=== PATIENT | female | born 1965 | race Caucasian/White ===

== ENCOUNTER 2021-07-09 00:11 | Day surgery (SDC) | payer OTHER, SELFPAY ==
[2021-05-22 09:43] VITALS: BMI 27.3
--- NOTE | 2021-05-22 10:01 | PC.NURSE ---
Addendum entered by Cate Barrera RN 07/07/21 10:57: PT TO ARRIVE AT 0700 ON 07/09/21 FOR SURGERY AT 0900. Original Note: Report to the Outpatient Waiting Room, entrance under the green pavilion located off [facility], at time 0600 on date 05/28/21. OR Time: 0730. - You and your visitor will be asked a series of questions to screen for COVID 19 for your protection. - A mask is required within the hospital. One visitor will be allowed to accompany the patient into the hospital. Patients visitor will be instructed to remain with patient at all times or leave the building. We will allow the visitor to come back to the postoperative area when patient is ready. Preoperative COVID Testing Requirements: No COVID Test needed if: (proof is required; if not received patient will have Rapid Test prior to entry) - Patient has received COVID Vaccine at least 14 days prior to procedure date or - Patient has positive COVID test result within last 90 days of surgery date. COVID Test needed if above criteria is not met Patients may have clear liquids (water, carbonated beverages, clear teas, apple juice) until 3 hours prior to surgery with a maximum of 20 ounces. - No food from midnight until time of surgery Take the following medications with a SIP of water the morning of surgery: LEVOTHYROXINE, INHALERS Medications to discontinue per physician: VITAMINS/SUPPLEMENTS Date to take last dose: 05/24/21 Please no make-up, nail bengali, hairspray, perfume, deodorant, or body powder the day of surgery. No jewelry (including any body piercings) or valuables the day of surgery, leave them at home. Please take a shower or bath the night before, or the morning of, surgery with an antibacterial soap. Wear comfortable, loose fitting clothing. - Jewelry must be removed prior to entering the operating room. Rings and piercings that are not removed may be cut off. - The hospital will not accept responsibility for valuables. - Please leave all valuables, including medications, at home the day of surgery. If you are going home after surgery, a licensed reefer truck driver must drive you home. - NO public transportation without another adult. - We recommend that an adult stay with you for 24 hours following discharge. - We also recommend that you do not drive, make important decision, drink alcoholic beverages, or take any drugs that were not prescribed by your health care provider for at least 24 hours after your discharge time. Follow any additional instructions given to you from your surgeon. Telephone instructions given to RADHA WHITMAN and asked if any additional questions and then verbalized understanding. Patient advised to call surgeon office or pre surgery nurse liaison [phone] if any additional questions.
[2021-07-07 10:53] VITALS: BMI 27.3
--- NOTE | 2021-07-08 11:04 | WPDANESEPPF ---
Anes - Initial Pre Proc Eval Procedure: Operation Date: 07/09/21 09:00 Proposed Procedures p Right Open Carpal Tunnel Release, Release Right Guyon's Canal - Bravo Dee MD Date/Time: 07/08/21 11:04 Surgeon: Bravo Dee MD Pre Op Diagnosis: Rt Carpal Tunnel Syn, Ulnar Neuropathy Rt Wrist Patient Data Age: 56 Gender: F Height: 1.65 m Weight: 74.39 kg Allergies Allergy/AdvReac Type Severity Reaction Status Date / Time No Known Allergies Allergy Unverified 07/09/21 07:03 Home Medications Medication Instructions Recorded Confirmed Type albuterol sulfate 1 inh INHALATION Q6H PRN 05/22/21 07/09/21 History folic acid 1 mg PO DAILY 05/22/21 07/09/21 History levothyroxine 50 mcg PO DAILY 05/22/21 07/09/21 History ropinirole 4 mg PO HS 05/22/21 07/09/21 History sennosides [senna] 8.6 mg PO HS 05/22/21 07/09/21 History tiotropium bromide [Spiriva with 1 cap INHALATION DAILY 05/22/21 07/09/21 History HandiHaler] trazodone 150 mg PO HS 05/22/21 07/09/21 History amitriptyline 25 mg PO DAILY 07/09/21 07/09/21 History gabapentin 100 mg PO DAILY 07/09/21 07/09/21 History Patient hx anesthesia problems: none Family hx anesthesia problems: none Results Review: All pre-operative results and documents have been reviewed as part of the pre-operative evaluation. [facility] Past Medical History Medical History (Updated 07/08/21 @ 11:05 by Castro Hector DO) Anxiety COPD (chronic obstructive pulmonary disease) Depression Hypothyroidism DRU (obstructive sleep apnea) Seizure Surgical History Surgical History (Updated 07/08/21 @ 11:05 by Castro Hector DO) History of Social History Social History Smoking packs per day: 1 Smoking cigarettes per day: 20.0 Years smoked: 48 Smoking pack-years: 48.00 Smoking status: Current every day smoker Tobacco type: cigarettes Alcohol intake: current Drinks per week: 30 Alcohol use details: FIREBALL SHOTS Substance use: never Substance use type: does not use Living arrangements: other Additional living arrangements comments: WITH VARIOUS FAMILY MEMBERS Spiritual care concerns: No Anes - Eval Final PreProcedure Day of Procedure 07/08/21 11:04 Patient weight: overweight Heart: regular rate and rhythm Lungs: clear to auscultation and normal air movement Airway: Mallampati scale class II Neurological: alert and oriented Last oral intake: >/= 8 hours ASA classification: III Emergent: no Anesthetic plan: proceed Anesthesia type and monitoring: general GIVS and standard monitoring Results Review: All pre-operative results and documents have been reviewed as part of the pre-operative evaluation. Informed Consent: The patient's anesthetic plan and its attendant risks and benefits were discussed with the patient/family/POA. Questions were solicited and answers provided to the satisfaction of the patient/family/POA.
--- NOTE | 2021-07-09 07:12 | WPDHPUPDATE1 ---
History and Physical Update Update Date/Time: 07/09/21 07:12 History and Physical has been reviewed, including an updated exam of the patient. There are NO changes in the patient's condition. Risks, benefits, and alternatives have been discussed and questions answered. Patient agrees to proceed with procedure.
[2021-07-09] MEDS: LACTATED RINGERS 1,000 ML 30 ML IV CONT (07:30)
[2021-07-09 07:37] VITALS: BP 114/87; PULSE 93; RESP 16; TEMP 36.1; O2SAT 98
[2021-07-09] MEDS: BACITRACIN OINTMENT 15 GM TUBE 1 APPLIC TOPICAL (08:54)
[2021-07-09] MEDS: LIDO 1%/EPINEPHRINE 1:100,000 50 ML VIAL 10 ML INFILTRATE (08:54)
[2021-07-09 09:36] VITALS: BP 128/77; PULSE 80; RESP 16; O2SAT 100
[2021-07-09 10:00] VITALS: BP 130/71; PULSE 86; RESP 16; O2SAT 98
[2021-07-09 10:20] VITALS: BP 113/70; PULSE 85; RESP 16
--- NOTE | 2021-07-09 18:14 | W.PM.PROC2 ---
Procedure Note - Detailed Date of Procedure 07/09/21 Pre-op Diagnosis Rt Carpal Tunnel Syn, Ulnar Neuropathy Rt Wrist Post-op Diagnosis Same Procedure Performed Right open carpal tunnel release and right ulnar neuroplasty at [facility]'s canal Surgeon Bravo Dee MD Anesthesia MAC Indications History, physical exam and nerve conduction study, failing conservative treatment Findings Normal anatomy Description of Procedure The carpal canal and Guyon's canal were marked on the patient in holding area she was and consented. He was then taken to the operating placed supine on operating table. He was given IV sedation the extremity was prepped and draped in usual fashion. Time-out was held and confirmed. The site was marked for the actual incision which was a slightly curved ulnar paramedian incision that crossed the distal wrist crease slightly. The extremity was exsanguinated the tourniquet inflated to 250 mmHg. This area was locally infiltrated as well with 1% lidocaine with epinephrine the incision was made as marked and dissection was carried through the subcutaneous tissue to the palmar carpal ligament this was incised near the pisiform and the ulnar neurovascular bundle was identified. The ulnar artery was not dissected the ulnar nerve was visible at the trunk and at the bifurcation. No constricting soft tissue mass was identified. Attention was directed radially and the carpal retinaculum which was incised for a complete release no unusual anatomy was noted in that compartment either. The skin was closed with interrupted 5 0 nylon the usual bandage was applied the tourniquet was released she is discharged from the operating room stable condition. Drains No Packing No Pathology None sent Complications No immediate complications Condition Stable Disposition Same day
== END 2021-07-09 10:42 | disposition home or self-care (01) ==
PROVIDERS: PCP Internal Medicine; Visit Provider Plastic Surgery
PROC: (CPT 64721; principal; 2021-07-09 09:00)
DX: G56.01 Carpal tunnel syndrome, right upper limb (principal); G56.21 Lesion of ulnar nerve, right upper limb; J44.9 Chronic obstructive pulmonary disease, unspecified; G47.33 Obstructive sleep apnea (adult) (pediatric); E03.9 Hypothyroidism, unspecified; F41.8 Other specified anxiety disorders; Z79.51 Long term (current) use of inhaled steroids; F17.210 Nicotine dependence, cigarettes, uncomplicated
CPT/HCPCS: 64721; A9270; J2250; J2704; J3010; J7120

== ENCOUNTER 2021-09-11 00:57 | Day surgery (SDC) | payer OTHER, SELFPAY ==
[2021-08-19 08:54] VITALS: BMI 28.3
--- NOTE | 2021-08-19 09:03 | PC.NURSE ---
Addendum entered by Cate Barrera RN 09/04/21 10:04: PT TO ARRIVE AT 1200 ON 09/11/21 FOR SURGERY AT 1400. TO STOP VITAMINS/SUPPLEMENTS 3 DAYS PRIOR TO PROCEDURE. Original Note: Report to the Outpatient Waiting Room, entrance under the green pavilion located off [facility], at time ___0600____ on date 08/21/21___. OR Time: _0730 . - You and your visitor will be asked a series of questions to screen for COVID 19 for your protection. - Only one visitor is allowed at this time. - The patient visitor is requested to leave or wait in car when not with patient. - A mask is required within the hospital. Patients may have clear liquids (water, carbonated beverages, clear teas, apple juice) until 3 hours prior to surgery with a maximum of 20 ounces. - No food from midnight until time of surgery - Infants may have breast milk until 4 hours before surgery, infant formula 6 hours prior to surgery. - Children will be allowed to drink immediately following surgery. If applicable, please bring a bottle or sippy cup to assist with drinking. Juice, water, soda, and popsicles are readily available. For infants on formula, please bring formula the day of surgery. Pacifiers are allowed. Take the following medications with a SIP of water the morning of surgery: AMITRIPTYLINE, GABAPENTIN, LEVOTHYROXINE Medications to discontinue per physician FOLIC ACID Date to take last dose_08/19/21 Please no make-up, nail mexican, hairspray, perfume, deodorant, or body powder the day of surgery. No jewelry (including any body piercings) or valuables the day of surgery, leave them at home. Please take a shower or bath the night before, or the morning of, surgery with an antibacterial soap. Wear comfortable, loose fitting clothing. Children are encouraged to wear pajamas. - Jewelry must be removed prior to entering the operating room. Rings and piercings that are not removed may be cut off. - The hospital will not accept responsibility for valuables. - Please leave all valuables, including medications, at home the day of surgery. If you are going home after surgery, a licensed driver recruiter must drive you home. - NO public transportation without another adult. - We recommend that an adult stay with you for 24 hours following discharge. - We also recommend that you do not drive, make important decision, drink alcoholic beverages, or take any drugs that were not prescribed by your health care provider for at least 24 hours after your discharge time. For Pediatric surgeries, we recommend two adults accompany the child home (only one inside the building at this time). Follow any additional instructions given to you from your surgeon. If you or anyone in your household have experienced Covid symptoms in the past week, please notify your surgeon or the nurse liaison at the phone number below for possible testing. Telephone instructions given to ____PATIENT and asked if any additional questions and then verbalized understanding. Patient advised to call surgeon office or pre surgery nurse liaison [phone] if any additional questions.
--- NOTE | 2021-08-20 12:45 | P.PNAN_ITS ---
Anes - Initial Pre Proc Eval Procedure: Operation Date: 08/21/21 07:30 Proposed Procedures p Release Left Carpal Tunnel and Left Guyons Canal - Bravo Dee MD Date/Time: 08/20/21 12:45 Surgeon: Bravo Dee MD Pre Op Diagnosis: Lt Carpal Tunnel Syndrome,ulnar nerve compression Patient Data Age: 56 Gender: F Height: 1.63 m Weight: 75 kg Allergies Allergy/AdvReac Type Severity Reaction Status Date / Time No Known Allergies Allergy Unverified 08/19/21 08:51 Home Medications Medication Instructions Recorded Confirmed Type albuterol sulfate 90 mcg/actuation 1 inh inhalation Q6H PRN 05/22/21 08/19/21 History aerosol inhaler Bronchospasm folic acid 1 mg tablet 1 mg PO DAILY 05/22/21 08/19/21 History levothyroxine 50 mcg tablet 50 mcg PO DAILY 05/22/21 08/19/21 History ropinirole 4 mg tablet 4 mg PO HS 05/22/21 08/19/21 History sennosides 8.6 mg tablet (senna) 8.6 mg PO HS 05/22/21 08/19/21 History tiotropium bromide 18 mcg capsule 1 cap inhalation DAILY 05/22/21 08/19/21 History with inhalation device (Spiriva with HandiHaler) amitriptyline 25 mg tablet 25 mg PO DAILY 07/09/21 08/19/21 History gabapentin 300 mg capsule 300 mg PO DAILY 07/09/21 08/19/21 History hydrocodone 5 mg-acetaminophen 325 1 tablet PO Q6H PRN pain #7 tabs 07/09/21 08/19/21 Rx mg tablet Results Review: All pre-operative results and documents have been reviewed as part of the pre- operative evaluation. [facility] Past Medical History Medical History (Updated 07/08/21 @ 11:05 by Castro Hector DO) Anxiety COPD (chronic obstructive pulmonary disease) Depression Hypothyroidism DRU (obstructive sleep apnea) Seizure Surgical History Surgical History (Updated 07/08/21 @ 11:05 by Castro Hector DO) History of Social History Social History Smoking packs per day: 0.5 Smoking cigarettes per day: 10.0 Years smoked: 40 Smoking pack-years: 20.00 Smoking status: Current every day smoker Tobacco type: cigarettes Alcohol intake: current Drinks per week: 3 Alcohol use details: FIREBALL SHOTS Substance use: never Substance use type: does not use Living arrangements: alone Additional living arrangements comments: WITH VARIOUS FAMILY MEMBERS Spiritual care concerns: No Anes - Eval Final PreProcedure Day of Procedure 08/20/21 12:45 Results Review: All pre-operative results and documents have been reviewed as part of the pre- operative evaluation. Informed Consent: The patient's anesthetic plan and its attendant risks and benefits were discussed with the patient/family/POA. Questions were solicited and answers provided to the satisfaction of the patient/family/POA.
--- NOTE | 2021-09-04 10:03 | PC.NURSE ---
Pt states no changes in health history or medications since initial interview. New pre-op instructions reviewed with pt. Pt denies further questions at this time.
--- NOTE | 2021-09-11 07:20 | WPDHPUPDATE1 ---
History and Physical Update Update Date/Time: 09/11/21 07:20 History and Physical has been reviewed, including an updated exam of the patient. There are NO changes in the patient's condition. Risks, benefits, and alternatives have been discussed and questions answered. Patient agrees to proceed with procedure.
[2021-09-11 12:02] VITALS: BP 121/64; PULSE 91; RESP 16; TEMP 36.6; O2SAT 97
[2021-09-11] MEDS: LACTATED RINGERS 1,000 ML 30 ML IV CONT (12:28)
--- NOTE | 2021-09-11 12:47 | WPDANESEPPF ---
Anes - Initial Pre Proc Eval Procedure: Operation Date: 09/11/21 14:00 Proposed Procedures p Release Left Carpal Tunnel and Left Guyons Canal - Bravo Dee MD Date/Time: 09/11/21 12:47 Surgeon: Bravo Dee MD Pre Op Diagnosis: Lt Carpal Tunnel Syndrome,ulnar nerve compression Patient Data Age: 56 Gender: F Height: 1.63 m Weight: 73.8 kg Last Vital Signs Temp 36.6 C 09/11/21 12:02 Pulse 91 09/11/21 12:02 Resp 16 09/11/21 12:02 BP 121/64 09/11/21 12:02 Pulse Ox 97 09/11/21 12:02 O2 Del Method Room Air 09/11/21 12:02 Allergies Allergy/AdvReac Type Severity Reaction Status Date / Time No Known Allergies Allergy Unverified 09/11/21 12:10 Home Medications Medication Instructions Recorded Confirmed Type albuterol sulfate 90 mcg/actuation 1 inh inhalation Q6H PRN 05/22/21 09/11/21 History aerosol inhaler Bronchospasm folic acid 1 mg tablet 1 mg PO DAILY 05/22/21 09/11/21 History levothyroxine 50 mcg tablet 50 mcg PO DAILY 05/22/21 09/11/21 History ropinirole 4 mg tablet 4 mg PO HS 05/22/21 09/11/21 History sennosides 8.6 mg tablet (senna) 8.6 mg PO HS 05/22/21 09/11/21 History tiotropium bromide 18 mcg capsule 1 cap inhalation DAILY 05/22/21 09/11/21 History with inhalation device (Spiriva with HandiHaler) amitriptyline 25 mg tablet 25 mg PO DAILY 07/09/21 09/11/21 History gabapentin 300 mg capsule 300 mg PO DAILY 07/09/21 09/11/21 History Patient hx anesthesia problems: none Family hx anesthesia problems: none Results Review: All pre-operative results and documents have been reviewed as part of the pre-operative evaluation. [facility] Past Medical History Medical History (Updated 07/08/21 @ 11:05 by Castro Hector DO) Anxiety COPD (chronic obstructive pulmonary disease) Depression Hypothyroidism DRU (obstructive sleep apnea) Seizure Surgical History Surgical History (Updated 07/08/21 @ 11:05 by Castro Hector DO) History of Social History Social History Smoking packs per day: 0.5 Smoking cigarettes per day: 10.0 Years smoked: 40 Smoking pack-years: 20.00 Smoking status: Current every day smoker Tobacco type: cigarettes Alcohol intake: current Drinks per week: 3 Alcohol use details: FIREBALL SHOTS Substance use: never Substance use type: does not use Living arrangements: alone Additional living arrangements comments: WITH VARIOUS FAMILY MEMBERS Spiritual care concerns: No Anes - Eval Final PreProcedure Day of Procedure 09/11/21 12:47 Patient weight: overweight Heart: regular rate and rhythm Lungs: clear to auscultation Airway: Mallampati scale class II Neurological: alert and oriented Last oral intake: >/= 8 hours ASA classification: III Emergent: no Anesthetic plan: proceed Anesthesia type and monitoring: general GIVS and standard monitoring Results Review: All pre-operative results and documents have been reviewed as part of the pre-operative evaluation. Informed Consent: The patient's anesthetic plan and its attendant risks and benefits were discussed with the patient/family/POA. Questions were solicited and answers provided to the satisfaction of the patient/family/POA.
[2021-09-11] MEDS: LIDO 1%/EPINEPHRINE/PF 1:200,000 30 ML VIAL 10 ML XX (14:34)
[2021-09-11 15:04] VITALS: BP 90/44; PULSE 82; RESP 12; O2SAT 98
--- NOTE | 2021-09-11 15:06 | W.PM.PROC2 ---
Procedure Note - Detailed Date of Procedure 09/11/21 Pre-op Diagnosis Lt Carpal Tunnel Syndrome,ulnar nerve compression at Guyon's canal Post-op Diagnosis Same Procedure Performed Left open carpal tunnel release release of left ulnar nerve at [facility] skin. Surgeon Bravo Dee MD Anesthesia MAC Description of Procedure The left palm was marked for access to the carpal tunnel and Guyon's canal. Patient taken to the operating room placed supine on the operating table. She was given IV sedation and the extremity was prepped and draped in usual fashion. The site was marked for the incision. It was locally infiltrated with 1% lidocaine with epinephrine. The tourniquet was inflated to 250 mmHg. The incision was made as marked and carried bluntly through the subcutaneous tissue down to the ulnar side of the carpal ligament. This was incised opening the canal under 3 point retraction. The complete release was completed. Attention was directed more ulnarly beneath the same skin incision. The palmar aponeurosis was incised and the ulnar neurovascular bundle identified. It was followed from the area of the pisiform distally to hook of the hamate. During this dissection it was noted the 1 mm artery was transected. This was associated with vena comitantes and the nerve. This transection was carefully exposed over 3 mm. At that point small vascular clips were applied to each end of this artery very near the end. The tourniquet was released and the hand completely pinked within 2 seconds including all 5 digits. Based on that finding we elected not to try to repair this but left the clips. The nerve was noted to be intact. The skin was then closed with interrupted 5 0 nylon sutures and the usual bandage applied with an Sina wrap. Patient is discharged from the operating room stable condition she has a prescription for hydrocodone number 7 Estimated Blood Loss 1 Tourniquet Time 18 Condition Stable Disposition Same day
[2021-09-11 15:35] VITALS: BP 89/58; PULSE 78; RESP 16
== END 2021-09-11 16:17 | disposition home or self-care (01) ==
PROVIDERS: PCP Internal Medicine; Visit Provider Plastic Surgery
PROC: (CPT 64721; principal; 2021-09-11 14:00)
DX: G56.22 Lesion of ulnar nerve, left upper limb (principal); G56.02 Carpal tunnel syndrome, left upper limb; I97.52 Accidental puncture and laceration of a circulatory system organ or structure during other procedure; Z79.82 Long term (current) use of aspirin; Z79.51 Long term (current) use of inhaled steroids; E03.9 Hypothyroidism, unspecified; F41.9 Anxiety disorder, unspecified; F32.A Depression, unspecified; J44.9 Chronic obstructive pulmonary disease, unspecified; R56.9 Unspecified convulsions; F17.210 Nicotine dependence, cigarettes, uncomplicated
CPT/HCPCS: 64721; A9270; J2250; J2270; J2704; J7120

== ENCOUNTER 2022-04-21 08:09 | Outpatient (CLI) | payer OTHER, SELFPAY ==
--- NOTE | ~2022-04-21 | CT_ITS ---
CT Scan of the Chest without Contrast: Clinical Indication: Pulmonary nodules Technique: Contiguous sections were acquired throughout the chest without intravenous contrast. Dose reduction technique was used on this scan by utilizing automated exposure control and iterative recon struction technique. The dose-length product (DLP) was 140.72 mGy-cm. Findings: There is no evidence of any significant mediastinal, hilar or axillary lymphadenopathy. Coronary shannon ry calcifications are present. No aortic aneurysm. There is no evidence of pleural or pericardial effusion. 4 mm right upper lobe pulmonary nodule present (axial image 34). 2 mm right middle lobe pulmonary nod ule present (axial image 63). Additional 2 mm middle lobe nodule present more inferiorly (axial image 71). Pleural-based nodules at the left lung base measuring up to 4 mm (axial image 82). There is an additional pleural-based left lower lobe pulmonary nodule measuring 6 mm (axial image 77). There is a 9 mm right basilar/lower lobe pleural-based nodule (axial image 79). Images through the upper abdomen reveal no abnormalities. Impression: Multiple pulmonary nodules, as detailed above. Largest nodule is at the right lung base, pleural-base d, measuring 9 mm. According to Fleischner Society criteria, for a low-risk patient, 3-6 month follow -up CT scan recommended, then consider additional 18-[address]. For a high-risk patient, follow-up CT scans at both 3-6 months, and at 18-24 months, are recommended. Reviewed, dictated and finalized at [facility]. [employer] Impression: Multiple pulmonary nodules, as detailed above. Largest nodule is at the right l audi base, pleural-based, measuring 9 mm. According to Fleischner Society criter ia, for a low-risk patient, 3-6 month follow-up CT scan recommended, then consi eda additional 18-[address] For a high-risk patient, follow-up CT scans at ot 3-6 months, and at 18-24 months, are recommended.
== END 2022-04-21 08:10 | disposition home or self-care (01) ==
LOC: ANHIMG 08:11
PROVIDERS: PCP Internal Medicine; Visit Provider Internal Medicine Pulmonary Disease
DX: R91.8 Other nonspecific abnormal finding of lung field (principal)
CPT/HCPCS: 71250

== ENCOUNTER 2022-05-25 06:03 | Emergency (ER) | payer OTHER, SELFPAY ==
--- NOTE | ~2022-05-25 | XR_ITS ---
Left Knee Technique: AP, lateral, and oblique views were obtained. Clinical History: Pain Findings: No fracture or dislocation is seen. Osseous alignment is anatomic. Suspected nonossifying f ibroma of the proximal tibia. Joint spaces are preserved without degenerative or erosive change. Soft tissues are unremarkable. No joint effusion is seen. Impression: No acute abnormality. 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 Reviewed, dictated and finalized at location M. TECHNICIAN Impression: No acute abnormality. 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
--- NOTE | ~2022-05-25 | XR_ITS ---
Right Knee Technique: AP, lateral, and oblique views were obtained. Clinical History: Pain Findings: No fracture or dislocation is seen. Osseous alignment is anatomic. Joint spaces are preserv ed without degenerative or erosive change. Soft tissues are unremarkable. No joint effusion is seen. Impression: Unremarkable right knee radiographs. Reviewed, dictated and finalized at [facility]. T CARE PROVIDER Impression: Unremarkable right knee radiographs.
[2022-05-25 06:04] VITALS: BP 152/103; PULSE 110; RESP 22; TEMP 36.8; O2SAT 100
--- NOTE | 2022-05-25 06:36 | ED.GENADULT ---
HPI - General Adult General Chief complaint: Extremity Problem,Nontraumatic <Benjamin Dyson MD - Last Filed: 05/25/22 06:48> Stated complaint: knee pain <Benjamin Dyson MD - Last Filed: 05/25/22 06:48> Time Seen by Provider: 05/25/22 06:34 <Benjamin Dyson MD - Last Filed: 05/25/22 06:48> History of Present Illness HPI narrative: Patient 57-year-old female who presents the emergency department with chief complaint of bilateral knee pain. Patient reports that she was seen at [facility] about a week ago and told that she probably had gout the patient states that she was put on indomethacin and then saw her pain management doctor who did an injection in her left knee patient states that the pain was doing better until last night when the pain started getting worse the patient reports both knees are now hurting and feel like a grating like sensation in both knees. The patient reports there has been no trauma denies fever or chills <Benjamin Dyson MD - Last Filed: 05/25/22 06:48> Related Data Home medications: Home Medications Medication Instructions Recorded Confirmed albuterol sulfate 90 mcg/actuation 1 inh inhalation Q6H PRN 05/22/21 09/11/21 aerosol inhaler Bronchospasm levothyroxine 50 mcg tablet 50 mcg PO DAILY 05/22/21 09/11/21 ropinirole 4 mg tablet 4 mg PO HS 05/22/21 09/11/21 tiotropium bromide 18 mcg capsule 1 cap inhalation DAILY 05/22/21 09/11/21 with inhalation device (Spiriva with HandiHaler) amitriptyline 25 mg tablet 25 mg PO DAILY 07/09/21 09/11/21 gabapentin 300 mg capsule 300 mg PO DAILY 07/09/21 09/11/21 <Benjamin Dyson MD - Last Filed: 05/25/22 06:48> Allergies/adverse reactions: Allergies Allergy/AdvReac Type Severity Reaction Status Date / Time No Known Allergies Allergy Verified 05/25/22 06:12 <Benjamin Dyson MD - Last Filed: 05/25/22 06:48> Review of Systems Review of Systems: A 10 system review of systems was completed on the patient and is negative except for what is stated in the HPI. Nursing and ancillary documentation was reviewed. <Benjamin Dyson MD - Last Filed: 05/25/22 06:48> PMFSH Past Medical History Medical History: Medical History Anxiety COPD (chronic obstructive pulmonary disease) Depression Hypothyroidism Multiple abrasions DRU (obstructive sleep apnea) Seizure <Benjamin Dyson MD - Last Filed: 05/25/22 06:48> Surgical History Surgical History: Surgical History History of <Benjamin Dyson MD - Last Filed: 05/25/22 06:48> Social History Social History: Social History Smoking packs per day: 0.5 Smoking cigarettes per day: 10.0 Years smoked: 40 Smoking pack-years: 20.00 Smoking status: Current every day smoker Tobacco type: cigarettes Alcohol intake: current Drinks per week: 3 Alcohol use details: FIREBALL SHOTS Substance use: never Substance use type: does not use Living arrangements: alone Additional living arrangements comments: WITH VARIOUS FAMILY MEMBERS Spiritual care concerns: No <Benjamin Dyson MD - Last Filed: 05/25/22 06:48> Exam Narrative: GENERAL: Well-appearing, well-nourished, and in mild pain acute distress. HEAD: Normocephalic, atraumatic. EYES: PERRLA and EOMI. ENT: Nares clear, no rhinorrhea or epistaxis. Mucous membranes moist. NECK: Supple. CHEST: Clear to auscultation. No respiratory distress. HEART: Regular rate and rhythm. No murmur heard. Normal peripheral pulses. ABDOMEN: Soft, nontender, nondistended, normal active bowel sounds. EXTREMITIES: Normal range of motion. No edema. Negative Nancy negative anterior and posterior drawer sign, no effusion in knees
[2022-05-25] MEDS: MORPHINE SULFATE (*CRX) 4 MG/ML INJ 2 MG IV PUSH (06:41)
[2022-05-25] MEDS: KETOROLAC 30 MG/ML VIAL (*BKC) 15 MG IV PUSH (06:41)
[2022-05-25 06:58] LABS: Basophils Absolute Auto 0.1 K/mm3 (0.0-0.1); Basophils Percent Auto 1.1 % (0.2-1.2); Eosinophils Absolute Auto 0.3 K/mm3 (0-0.3); Hematocrit 41.7 % (37.0-47.0); Hemoglobin 13.5 g/dL (12.0-15.0); Immature Granulocyte Absolute 0.31 K/mm3 (0.00-0.031); Immature Granulocyte Percent A 3.2 % (0-0.5); Immature Platelet Fraction Pct 2.1 % (0.9-11.2); Lymphocytes Absolute Auto 2.35 K/mm3 (0.9-3.2); Lymphocytes Percent Auto 23.9 % (18.3-44.2); Mean Corpuscular HGB Conc 32.4 g/dl (32-36); Mean Corpuscular Hemoglobin 31.9 pg (26-34); Mean Corpuscular Volume 98.6 fl (80-100); Monocytes Absolute Auto 0.5 K/mm3 (0.1-0.6); Monocytes Percent Auto 5.2 % (2.6-8.5); Neutrophils Absolute Auto 6.3 K/mm3 (1.3-6.7); Neutrophils Percent Auto 63.6 % (45.5-73.1); Platelet Count Result 151 k/mm3 (150-375); Red Blood Count 4.23 M/mm3 (4.2-5.4); Red Cell Distribution Width 14.6 % (11.5-14.5); White Blood Count 9.8 K/mm3 (4.5-10.0)
[2022-05-25 07:36] LABS: Ethanol < 10 mg/dL (<10)
[2022-05-25 07:37] LABS: Alanine Aminotransferase 23 U/L (6-35); Albumin Level 3.6 g/dL (3.5-5.1); Alkaline Phosphatase 112 U/L (38-126); Anion Gap 6 mmol/L (8-16); Aspartate Amino Transferase 23 U/L (14-36); Bilirubin,Total 0.4 mg/dL (0.2-1.3); Blood Urea Nitrogen 16 mg/dL (7-17); Calcium 8.8 mg/dL (8.4-10.2); Carbon Dioxide 28 mmol/L (22-30); Chloride 101 mmol/L (98-107); Estimated CRCL calculation 105 ml/min; Estimated Glomerular Filt Rate > 60; Glucose 98 mg/dL (65-110); Potassium 3.8 mmol/L (3.4-5.0); Sodium 135 mmol/L (137-145)
[2022-05-25 07:38] LABS: CRP 0.7 mg/dL (<1.0)
[2022-05-25] MEDS: MORPHINE SULFATE (*CRX) 2 MG/ML INJ IV PUSH (08:44)
--- NOTE | 2022-06-02 09:33 | PC.NURSE ---
LATE ENTRY This note is being entered to document information to the patient's record. The following information was omitted on [05/25/2022], by [Cristina Najera RN]. NS Fluids stopped with zero left in container.
--- NOTE | 2022-06-09 10:43 | PC.NURSE ---
LATE ENTRY This note is being entered to document information to the patient's record. The following information was omitted on [05/25/22], by [Fannie Najera RN]. Tylenol infusion stopped at 0900am.
== END 2022-05-25 10:45 | disposition home or self-care (01) ==
PROVIDERS: Emergency Medicine; Emergency Provider Preventive Medicine Aerospace Medicine; PCP Internal Medicine
DX: M25.562 Pain in left knee (principal); M25.561 Pain in right knee; M10.9 Gout, unspecified; J44.9 Chronic obstructive pulmonary disease, unspecified; E03.9 Hypothyroidism, unspecified; G47.33 Obstructive sleep apnea (adult) (pediatric); F41.9 Anxiety disorder, unspecified; F32.A Depression, unspecified; F17.210 Nicotine dependence, cigarettes, uncomplicated; R93.6 Abnormal findings on diagnostic imaging of limbs
CPT/HCPCS: 36415; 73562; 80053; 80307; 85025; 85055; 86140; 96374; 96375; 96376; 99284; J0131; J1885; J2270

== ENCOUNTER 2022-05-28 12:29 | Outpatient (CLI) | payer OTHER, SELFPAY ==
--- NOTE | 2022-06-02 02:10 | P.PCNPFT_ITS ---
PFT Procedure Performed PFT Procedure Performed Spirometry with Pre/Post Bronchodilator Plethysmography (Lung Vol) Diffusing Cap (DLCO) Flow Vol Loop PFT Interpretation DOS: 05/28/2022 REQUESTING: Jeremiah Torres MD REASON FOR TESTING: COPD PULMONARY FUNCTION TESTS Repeatability of maneuver after bronchodilator was Grade B, fair. Spirometry: Pre-bronchodilator FEV1 is 1.74 L, 67%, reduced. Pre- bronchodilator FVC is 2.84 L, 86%, normal. FEV1/FVC is 61%, reduced. After bronchodilator the FEV1 increases 7%, 1.86 L, and the FVC increases by 6%, 2.99 L. These are non-statistically significant increases. Lung volumes: Total lung capacity is 5.83 L, 115% predicted, normal. Residual volume is 3.0 L, 155%, moderate air trapping. RV/TLC is 51%, increased. Raw 3.15, 205%, increased. Diffusion: DLCO is 17, 78%, normal. DLCO/VA is 4.06, 90%. Flow volume loop: There is coving of the expiratory limb. IMPRESSION: Mild obstructive ventilatory impairment, moderate air trapping, normal diffusion. Lack of response to bronchodilator should not preclude use if clinically indicated. There is a PFT from 04/21/2021 which is similar to these results. The study was from [facility], showed mild obstructive ventilatory impairment without significant response to bronchodilator. The patient had hyperinflation but no absolute values for total lung capacity were given. Air trapping was present and increased airway resistance. Sheryl Huitron MD
== END 2022-05-28 12:30 | disposition home or self-care (01) ==
LOC: ANHPFT 12:31
PROVIDERS: PCP Internal Medicine; Visit Provider Internal Medicine Pulmonary Disease
DX: J44.9 Chronic obstructive pulmonary disease, unspecified (principal); R94.2 Abnormal results of pulmonary function studies
CPT/HCPCS: 94060; 94726; 94729

== ENCOUNTER 2022-08-02 09:02 | Outpatient (CLI) | payer OTHER, SELFPAY ==
--- NOTE | 2022-08-20 16:00 | WPDSLEEPSTUD ---
Sleep Study Date of Study: 08/02/22 Ordering Provider: Adrian Gates APRN Interpreting Physician: Sheryl Huitron MD Sleep Study Type: Polysomnogram Height: 1.63 m Weight: 81.647 kg Body Mass Index: 30.9 Neck Circumference (inches): 17 [place]: 10 Reason for Sleep Study Patient reports snoring as well as daytime hypersomnia, nodding off during the day, witnessed apneas by family members. She had a sleep study 05/26/21 through [facility] which demonstrated overall mild obstructive sleep apnea and this was moderate in REM sleep. She was not set up on PAP therapy after this study. She also had a home sleep test through [facility] in 2019 which was negative. Sleep History Nancy Whatley is a 57-year-old female presents to the sleep lab for evaluation of loud snoring and daytime hypersomnia. She has a history of obstructive sleep apnea, and a recent UT. She constantly awakens from sleep short of breath. She frequently awakens at night with heartburn, belching or cough.? She constantly snores and snores loudly enough that others complain. She occasionally wakes up gasping for breath during the night. She constantly has breathing problems at night. She frequently sweats excessively at night. She occasionally notices her heart pounding or beating irregularly during the night. She frequently falls asleep during the day and frequently falls asleep involuntarily. She occasionally falls asleep while driving. She frequently experiences loss of muscle tone with strong emotion. She frequently has trouble at work because of sleepiness. She never feels paralyzed on waking or falling asleep. She rarely experiences vivid dreams upon waking or falling asleep. She does not feel afraid of going to sleep. She rarely has nightmares. She rarely recalls her dreams. She constantly has thoughts racing through her mind. She frequently feels sad or depressed. She constantly feels anxiety or worry about things. She constantly feels muscle tension. She rarely notices parts of her body jerk. She occasionally kicks during the night. She constantly feels crawling or aching feelings in her legs. She frequently feels leg pain at night. She never grinds her teeth or has morning jaw pain. She constantly feels bothered by pain during the day and is frequently awakened by pain during the night. She constantly wakes up feeling stiff, sore, and achy in the morning with pain in her neck, spine, or joints. Normal bedtime is around 9pm or 10pm on the weekdays the same on the weekends, taking ?forever? fall asleep. She typically gets about 5 hours of sleep per night. Her wake up time is between 5 to 6am on the weekdays and same on the weekends. She typically wakes up around 3 or 4 times per night, sometimes awake for a few minutes and other times up to 30 minutes or an hour. During those nocturnal awakenings she will go to the bathroom, look at the time and try to go back to sleep. Habits:? She has smoked tobacco for 40 years. She typically drinks 2 caffeinated beverages per day. She typically drinks 2 alcoholic beverages per day. No recreational substances. [facility]LY [facility] Past Medical History Medical History Anxiety COPD (chronic obstructive pulmonary disease) Depression Hypothyroidism Inflammatory arthritis Multiple abrasions DRU (obstructive sleep apnea) Seizure Surgical History Surgical History History of S/P cardiac cath May 2022 s/p stent x1 Social History Social History Smoking packs per day: 0.5 Smoking cigarettes per day: 10.0 Years smoked: 40 Smoking pack-years: 20.00 Smoking status: Current every day smoker Tobacco type: cigarettes Alcohol intake: current Drinks per week: 3 Alcohol use details: FIREBALL SHOTS Substance use: never Substance use type: does not use Living arrangements: alone Additional l
[2022-08-20 17:14] VITALS: BMI 30.9
== END 2022-08-03 05:37 | disposition home or self-care (01) ==
LOC: ANHCSM 09:03
PROVIDERS: PCP Nurse Practitioner; Visit Provider Nurse Practitioner Family
DX: G47.10 Hypersomnia, unspecified (principal); G47.33 Obstructive sleep apnea (adult) (pediatric)
CPT/HCPCS: 95810

== ENCOUNTER 2022-08-07 13:43 | Outpatient (CLI) | payer OTHER, SELFPAY ==
--- NOTE | ~2022-08-07 | CT_ITS ---
EXAMINATION:CT diagnostic chest wo con DATE: 08/07/2022 14:19 INDICATION: Lung nodule. TECHNIQUE: Computed tomography (CT) of the chest was performed without intravenous contrast. Automate d exposure control and iterative reconstruction technique were employed. The dose-length product (DLP ) was 141.33 mGy-cm. COMPARISON: Chest CT 04/21/2022, CT abdomen and pelvis 12/18/06 FINDINGS: There is mild emphysema. There is mild atelectasis bilaterally. There are a few scattered n odules measuring up to 5 mm in right upper lobe, stable from 04/21/2022. There is a 6 mm pleural-based nodule at right lung base, stable from 12/18/2006. Calcified hilar and mediastinal lymph nodes are co nsistent with old granulomatous disease. No pleural effusion. The heart size is normal. There are cor onary artery calcifications. No pericardial effusion. Calcifications in the spleen are consistent wit h old granulomatous disease. There is diffuse hepatic steatosis. There is mild thoracic spondylosis. IMPRESSION: 1. Stable pulmonary nodules, likely benign. 2. Mild emphysema. 3. Diffuse hepatic steatosis. Reviewed, dictated and finalized at location E.
== END 2022-08-07 13:44 | disposition home or self-care (01) ==
PROVIDERS: PCP Nurse Practitioner; Visit Provider Nurse Practitioner Family
DX: R91.8 Other nonspecific abnormal finding of lung field (principal); J43.9 Emphysema, unspecified; K76.0 Fatty (change of) liver, not elsewhere classified
CPT/HCPCS: 71250

== ENCOUNTER 2022-09-10 09:53 | Outpatient (CLI) | payer OTHER, SELFPAY ==
[2022-09-10 10:18] LABS: Hematocrit 39.4 % (37.0-47.0); Hemoglobin 12.5 g/dL (12.0-15.0); Mean Corpuscular HGB Conc 31.7 g/dl (32-36); Mean Corpuscular Hemoglobin 31.5 pg (26-34); Mean Corpuscular Volume 99.2 fl (80-100); Mean Platelet Volume 9.2 fl (7.4-10.4); Platelet Count Result 207 k/mm3 (150-375); Red Blood Count 3.97 M/mm3 (4.2-5.4); White Blood Count 6.6 K/mm3 (4.5-10.0)
[2022-09-10 10:33] LABS: Alanine Aminotransferase 22 U/L (6-35); Albumin Level 4.3 g/dL (3.5-5.1); Alkaline Phosphatase 124 U/L (38-126); Anion Gap 10 mmol/L (8-16); Aspartate Amino Transferase 28 U/L (14-36); Bilirubin,Total 0.5 mg/dL (0.2-1.3); Blood Urea Nitrogen 16 mg/dL (7-17); CRP 1.4 mg/dL (<1.0); Calcium 8.8 mg/dL (8.4-10.2); Carbon Dioxide 28 mmol/L (22-30); Chloride 102 mmol/L (98-107); Estimated Glomerular Filt Rate > 60; Glucose 105 mg/dL (65-110); Potassium 3.3 mmol/L (3.4-5.0); Sodium 140 mmol/L (137-145); Uric Acid 8.7 mg/dL (2.5-7.5)
== END 2022-09-10 09:54 | disposition home or self-care (01) ==
PROVIDERS: PCP Nurse Practitioner; Visit Provider Internal Medicine
DX: M10.9 Gout, unspecified (principal); M19.90 Unspecified osteoarthritis, unspecified site
CPT/HCPCS: 36415; 80053; 84550; 85027; 86140

== ENCOUNTER 2022-10-23 14:54 | Observation (INO) | payer MEDICARE, MEDICAID, SELFPAY ==
--- NOTE | ~2022-10-23 | CT_ITS ---
EXAMINATION: CT brain wo con DATE: 10/23/2022 18:50 INDICATION: Dizziness TECHNIQUE: Computed tomography (CT) of the head was performed without intravenous contrast. The dose- length product was 605.33 mGy-cm. Automated exposure control and iterative reconstruction technique w ere employed. COMPARISON: None FINDINGS: Brain parenchymal volume is normal for age. There are scattered mild periventricular and díaz bcortical white matter changes, most likely related to small vessel ischemic disease (microangiopathy ). No ventriculomegaly or midline shift. No acute intracranial hemorrhage, infarction, mass or mass e ffect. There is intracranial atherosclerosis. Paranasal sinuses and mastoids are pneumatized. IMPRESSION: 1. No acute intracranial abnormality. Reviewed, dictated and finalized at location A.
--- NOTE | ~2022-10-23 | XR_ITS ---
XR chest 2V DATE: 10/23/2022 15:33 INDICATION: Chest pain TECHNIQUE: 2 views COMPARISON: 08/07/2022 CT chest 10/08/2017 AP and lateral chest FINDINGS: Normal heart size. Aortic arch calcification. No hilar or mediastinal enlargement. No pulmonary infiltrate or consolidation, pleural effusion or pulmonary vascular congestion or pneumo thorax. Mild thoracolumbar dextroscoliosis. Osteopenia. IMPRESSION: No active cardiopulmonary disease Aortic atherosclerosis Osteopenia Reviewed, dictated and finalized at location B.
--- NOTE | ~2022-10-23 | XR_ITS ---
XR chest 2V DATE: 10/24/2022 10:51 INDICATION: Shortness of breath TECHNIQUE: AP and lateral views COMPARISON: 10/23/2022 PA and lateral chest FINDINGS: Heart size is normal. Is aortic arch calcification. Moderate bilateral hyperinflation. No pulmonary infiltrate or consolidation, pleural effusion or pulm onary vascular congestion or pneumothorax is detected. No hilar or mediastinal enlargement. Diffuse osteopenia. IMPRESSION: Moderate hyperinflation; no active cardiac pulmonary disease Aortic calcification Osteopenia Reviewed, dictated and finalized at location A.
[2022-10-23 15:13] VITALS: BP 91/72; PULSE 130; RESP 16; TEMP 36.8; O2SAT 98
--- NOTE | 2022-10-23 15:16 | ECG_ITS ---
Measurements Intervals [place]: 124 P: 55 [place]: 139 QRS: 30 QRSD: 79 T: 32 QT: 295 QTc: 424 Interpretive Statements SINUS TACHYCARDIA CONSIDER INFERIOR INFARCT, AGE INDETERMINATE BASELINE ARTIFACT- III, AVF ABNORMAL ECG NO PREVIOUS ECG AVAILABLE FOR COMPARISON Electronically Signed On 10-23-2022 20:06:29 CDT by Zac Kendrick D.O.
[2022-10-23 15:49] LABS: Basophils Absolute Auto 0.1 K/mm3 (0.0-0.1); Basophils Percent Auto 0.6 % (0.2-1.2); Eosinophils Absolute Auto 0.2 K/mm3 (0-0.3); Eosinophils Percent Auto 1.5 % (0-4.4); Hematocrit 44.5 % (37.0-47.0); Hemoglobin 14.1 g/dL (12.0-15.0); Immature Granulocyte Absolute 0.14 K/mm3 (0.00-0.031); Immature Granulocyte Percent A 1.3 % (0-0.5); Lymphocytes Absolute Auto 1.78 K/mm3 (0.9-3.2); Mean Corpuscular HGB Conc 31.7 g/dl (32-36); Mean Corpuscular Hemoglobin 28.8 pg (26-34); Mean Corpuscular Volume 90.8 fl (80-100); Mean Platelet Volume 8.6 fl (7.4-10.4); Monocytes Absolute Auto 0.4 K/mm3 (0.1-0.6); Monocytes Percent Auto 3.9 % (2.6-8.5); Neutrophils Absolute Auto 7.9 K/mm3 (1.3-6.7); Neutrophils Percent Auto 75.7 % (45.5-73.1); Platelet Count Result 249 k/mm3 (150-375); Red Cell Distribution Width 15.4 % (11.5-14.5); White Blood Count 10.5 K/mm3 (4.5-10.0)
[2022-10-23 15:59] LABS: Alanine Aminotransferase 24 U/L (6-35); Albumin Level 4.4 g/dL (3.5-5.1); Alkaline Phosphatase 139 U/L (38-126); Anion Gap 17 mmol/L (8-16); Aspartate Amino Transferase 27 U/L (14-36); Bilirubin,Total 0.3 mg/dL (0.2-1.3); Blood Urea Nitrogen 12 mg/dL (7-17); Carbon Dioxide 22 mmol/L (22-30); Chloride 100 mmol/L (98-107); Estimated CRCL calculation 56 ml/min; Estimated Glomerular Filt Rate 57; Glucose 126 mg/dL (65-110); Lipase 142 U/L (23-300); Potassium 3.8 mmol/L (3.4-5.0); Sodium 139 mmol/L (137-145)
[2022-10-23 16:02] LABS: Partial Thromboplastin Time 25.4 SECONDS (22.3-36.8); Prothrombin Time 13.6 Seconds (11.1-14.7)
[2022-10-23 16:10] LABS: Troponin I < 0.012 ng/mL (0.000-0.034)
[2022-10-23 16:34] VITALS: BP 94/75; PULSE 116; RESP 20; TEMP 36.3; O2SAT 98
[2022-10-23] MEDS: SODIUM CHLORIDE 0.9% IV 500 ML 999 ML IV CONT ×2 (17:33→18:54)
[2022-10-23 17:50] LABS: D Dimer 0.48 ug/mL (<0.48)
--- NOTE | 2022-10-23 18:38 | ED.CHESTPAIN ---
HPI - Chest Pain General Chief Complaint: Chest Pain Stated Complaint: chest pain Time Seen by Provider: 10/23/22 17:16 Source: patient Mode of arrival: EMS Limitations: no limitations History of Present Illness HPI narrative: This is a 57-year-old female that presents to the emergency department for an episode of chest pain. Reports she was walking into the gas station. She started to note some substernal chest discomfort. She went back into her car to rest. She took a dose of nitroglycerin. Eventually her chest pain was relieved. Since she has been very lightheaded and nauseous. She feels dizzy when she stands up. She also reports a headache. Denies visual changes, vomiting, shortness of breath, or lower extremity edema. Related Data Home Medications Medication Instructions Recorded Confirmed levothyroxine 50 mcg tablet 50 mcg PO DAILY 05/22/21 06/19/22 ropinirole 4 mg tablet 4 mg PO HS 05/22/21 06/19/22 amitriptyline 25 mg tablet 25 mg PO DAILY 07/09/21 06/19/22 gabapentin 300 mg capsule 300 mg PO DAILY 07/09/21 06/19/22 clopidogrel 75 mg tablet 75 mg PO 06/19/22 06/19/22 ergocalciferol (vitamin D2) 50 mcg 50 mcg PO DAILY 06/19/22 06/19/22 (2,000 unit) capsule folic acid 1 mg tablet 1 mg PO DAILY 06/19/22 06/19/22 mecobalamin (vitamin B12) 1,000 1,000 mcg PO DAILY 06/19/22 06/19/22 mcg lozenges metoprolol tartrate 50 mg tablet 50 mg PO 06/19/22 06/19/22 nitroglycerin 0.4 mg sublingual 0.4 mg sublingual 06/19/22 06/19/22 tablet Allergies Allergy/AdvReac Type Severity Reaction Status Date / Time No Known Allergies Allergy Verified 10/23/22 16:32 Review of Systems Review of Systems: CONSTITUTIONAL: Denies fever EYES: Denies visual changes CARDIOVASCULAR: Reports chest pain. Denies edema. RESPIRATORY: Denies dyspnea. GASTROINTESTINAL: Denies abdominal pain, nausea, vomiting All systems reviewed & are unremarkable except as noted in HPI and below PMFSH Past Medical History Medical History (Updated 10/23/22 @ 20:42 by Vera De La Garza PA-C) Anxiety COPD (chronic obstructive pulmonary disease) Coronary artery disease Depression Hypothyroidism Inflammatory arthritis Multiple abrasions DRU (obstructive sleep apnea) Seizure Surgical History Surgical History History of S/P cardiac cath May 2022 s/p stent x1 Social History Social History Smoking packs per day: 0.5 Smoking cigarettes per day: 10.0 Years smoked: 40 Smoking pack-years: 20.00 Smoking status: Current every day smoker Tobacco type: cigarettes Alcohol intake: current Drinks per week: 3 Alcohol use details: FIREBALL SHOTS Substance use: never Substance use type: does not use Living arrangements: alone Additional living arrangements comments: WITH VARIOUS FAMILY MEMBERS Spiritual care concerns: No Exam Narrative: GENERAL: Well-appearing, well-nourished, and in no acute distress. HEAD: Normocephalic, atraumatic. EYES: PERRLA and EOMI. ENT: Nares clear, no rhinorrhea or epistaxis. Mucous membranes moist. Oropharynx without tonsillar hypertrophy exudate or other lesions. Bilateral TMs pearly craig non-bulging NECK: Supple. No adenopathy or masses. No JVD CHEST: Clear to auscultation. No respiratory distress. No wheezes rales or rhonchi HEART: Regular rate and rhythm. No murmur heard. Normal peripheral pulses. EXTREMITIES: Normal range of motion. No edema. Strength equal in bilateral upper and lower extremities (5/5) SKIN: Warm, dry, no rash. NEURO: No focal deficits. Alert and oriented x3. Cranial nerves 2-12 grossly intact PSYCH: Normal mood and affect Course Course Emergency Course: Patient and family updated on workup and agree with plan of care Consultations Consultation #1: Spoke with hospitalist about patient and workup who accepts admission Date: 10/23/22 Vital
[2022-10-23 19:09] LABS: Troponin I < 0.012 ng/mL (0.000-0.034)
--- NOTE | 2022-10-23 19:20 | PC.NURSE ---
This RN assumed care of patient. This RN took patient report from Manjeet SY.
[2022-10-23 19:29] LABS: Creatine Kinase 69 U/L (30-135)
--- NOTE | 2022-10-23 19:55 | PM.IMHP ---
H&P: HPI History of Present Illness Date/Time: 10/23/22 19:55 Chief Complaint: Dizziness Narrative: This is a 57-year-old female with past medical history significant for COPD/emphysema, restless leg syndrome, hypertension, hypothyroidism, peripheral neuropathy, chronic kidney disease, obstructive sleep apnea. Patient presents to the emergency due to dizziness, lightheadedness, according to patient she has been taking Lasix for bilateral lower extremity swelling that was prescribed by her primary care physician. Has been in her usual state of health up until today when she felt dizzy, lightheaded, denies any fevers, rigors, chills, nausea, vomiting, diarrhea, chest pain, abdominal pain had also episode of retrosternal chest pain which subsided after given nitroglycerin afterwards patient started having a headache. Preliminary workup was significant for troponins x3 were 0.012, a chest x-ray and CT of the head was reported as: XR chest 2V DATE: 10/23/2022 15:33 INDICATION: Chest pain? TECHNIQUE: 2 views? COMPARISON: 08/07/2022 CT chest 10/08/2017 AP and lateral chest? FINDINGS: Normal heart size. Aortic arch calcification. No hilar or mediastinal enlargement. No pulmonary infiltrate or consolidation, pleural effusion or pulmonary vascular congestion or pneumothorax. Mild thoracolumbar dextroscoliosis. Osteopenia.? IMPRESSION: No active cardiopulmonary disease Aortic atherosclerosis Osteopenia? EXAMINATION: CT brain wo con DATE: 10/23/2022 18:50 INDICATION: Dizziness TECHNIQUE: Computed tomography (CT) of the head was performed without intravenous contrast. The dose-length product was 605.33 mGy-cm. Automated exposure control and iterative reconstruction technique were employed. COMPARISON: None FINDINGS: Brain parenchymal volume is normal for age. There are scattered mild periventricular and subcortical white matter changes, most likely related to small vessel ischemic disease (microangiopathy). No ventriculomegaly or midline shift. No acute intracranial hemorrhage, infarction, mass or mass effect. There is intracranial atherosclerosis. Paranasal sinuses and mastoids are pneumatized. IMPRESSION: 1. No acute intracranial abnormality. Review of Systems Review of Systems: Retrosternal chest discomfort, lightheadedness, dizziness, headache, Constitutional: Constitutional: Denies chills, Denies fever(s), Denies frequent falls, Denies night sweats, Denies poor appetite and Denies weakness Eyes: Eyes: Denies change in vision ENT: Denies dysphagia, Reports dizziness, Denies nasal congestion, Denies nasal discharge, Denies nasal obstruction and Denies odynophagia Cardiovascular: Cardiovascular: Reports chest pain at rest, Reports pedal edema, Reports lightheadedness, Denies radiating jaw, neck or arm pain and Denies palpitations Respiratory: Respiratory: Denies chest congestion, Denies cough and Denies excessive phlegm production Gastrointestinal: Gastrointestinal: Denies abdominal pain, Denies diarrhea, Denies nausea and Denies vomiting Genitourinary: Genitourinary: Denies dysuria Musculoskeletal: Musculoskeletal: Denies back pain and Denies myalgias Integumentary/Breasts: Skin/Breast: Denies rash Neurologic: Denies focal weakness and Denies Sensory deficit (Neuro) Psychiatric: Psychiatric: Reports no additional psychiatric complaints and Reports as per HPI Endocrine: Endocrine: Denies cold intolerance, Denies excessive sweating, Denies fatigue, Denies heat intolerance, Denies polyphagia, Denies polyuria and Denies palpitations Hematologic/Lymphatic: Hematologic/Lymphatic: Reports no additional hematologic/lymphatic complaints and Reports as per HPI Allergic/Immunologic: Allergic/Immunologic: Reports no additional allergic/immunologic complaints and Reports as per HPI FORMERLY [facility] Past Medical History Medical History (Updated 10/24/22 @ 01:47 by Alonso Fierro MD) Anxiety COPD (chronic obstructive pulmon
[2022-10-23] MEDS: ACETAMINOPHEN 500 MG TABLET 1000 MG PO (20:36)
--- NOTE | 2022-10-23 21:47 | ADMGEN ---
This patient, Nancy Whatley, was admitted to [facility] Surg Room 328-01. Patient/family oriented to hospital policies and general routines including ID bracelet, bed and alarms, visiting hours, pain management, procedures, bathroom and other care routines, personal items, smoking policy, room service/diet, and visiting hours. Information on how to activate the Rapid Response Team has been discussed. Patient/Family are encouraged to report perceived risks to care and to ask questions if they do not understand what they are told or what they should do.
[2022-10-23 22:00] VITALS: BP 85/53; PULSE 96; RESP 20; TEMP 36.1; O2SAT 97
[2022-10-23 22:06] VITALS: BMI 31.1
[2022-10-23] MEDS: SODIUM CHLORIDE 0.9% IV 1,000 ML 999 ML IV CONT ×2 (22:41→23:40)
[2022-10-23 23:04] LABS: Troponin I < 0.012 ng/mL (0.000-0.034)
[2022-10-24] VITALS (16 sets, daily range): BP systolic 71–108; BP diastolic 34–76; PULSE 76–98; RESP 14–22; TEMP 36.2–36.6; O2SAT 97–100
[2022-10-24] MEDS: SODIUM CHLORIDE 0.9% IV 1,000 ML 85 ML IV CONT ×2 (00:45→09:19)
[2022-10-24] MEDS: LEVOTHYROXINE SODIUM 50 MCG TABLET PO (05:57)
[2022-10-24] MEDS: SODIUM CHLORIDE 0.9% IV 1,000 ML 999 ML IV CONT (06:51)
[2022-10-24] MEDS: FOLIC ACID 1 MG TABLET PO (09:07)
[2022-10-24] MEDS: allopurinoL 300 MG TABLET PO (09:07)
[2022-10-24] MEDS: GABAPENTIN 300 MG CAPSULE PO (09:07)
[2022-10-24] MEDS: COLCHICINE 0.6 MG TABLET PO (09:07)
[2022-10-24] MEDS: CLOPIDOGREL BISULFATE 75 MG TABLET PO (09:07)
[2022-10-24] MEDS: FLUTICASONE/UMECLIDIN/VILANTER 100-62.5-25 MCG ELLIPTA 1 PUFF INHALATION (10:09)
[2022-10-24 10:53] LABS: NT Pro B Type Natriuretic Pept 180 pg/mL (19.9-100)
--- NOTE | 2022-10-24 14:25 | PC.NURSE ---
Pt is A&O4 female who came in with chest pain, hypotension, and JAYSON per admission diagnosis. Pt continues to have decreased BP. Pt was given 4 Liters of fluid to try to increase blood pressure between ED and night provider. Pt retaining fluid and blood pressure did not maintain any increase that was achieved. Pt was 2+ pitting edema, pt unable to finish sentence without having to catch her breath and pt starting to have wheezing and crackles at bases. Pt did not report any dizziness at this time. Pt denied having a headache after receiving tylenol in the ED. Provider notified by this nurse and multiple attempts were made by charge nurse to reach provider for further orders. Other hospitalist, Dr. Haynes, notified of patient condition r/t unable to reach patient hospitalist. CXR and BNP orders received. After discussing with [employer] assigned to hospitalist, provider called back and placed orders for IMU transfer. Report was called and pt was taken down.
[2022-10-24 16:24] LABS: Basophils Percent Auto 0.7 % (0.2-1.2); Eosinophils Absolute Auto 0.1 K/mm3 (0-0.3); Eosinophils Percent Auto 2.4 % (0-4.4); Hematocrit 33.6 % (37.0-47.0); Hemoglobin 10.2 g/dL (12.0-15.0); Immature Granulocyte Absolute 0.07 K/mm3 (0.00-0.031); Immature Granulocyte Percent A 1.2 % (0-0.5); Lymphocytes Percent Auto 29.7 % (18.3-44.2); Mean Corpuscular HGB Conc 30.4 g/dl (32-36); Mean Corpuscular Hemoglobin 28.7 pg (26-34); Mean Corpuscular Volume 94.6 fl (80-100); Mean Platelet Volume 9.2 fl (7.4-10.4); Monocytes Absolute Auto 0.3 K/mm3 (0.1-0.6); Monocytes Percent Auto 5.1 % (2.6-8.5); Neutrophils Absolute Auto 3.5 K/mm3 (1.3-6.7); Neutrophils Percent Auto 60.9 % (45.5-73.1); Platelet Count Result 159 k/mm3 (150-375); Red Blood Count 3.55 M/mm3 (4.2-5.4); Red Cell Distribution Width 15.2 % (11.5-14.5); White Blood Count 5.7 K/mm3 (4.5-10.0)
[2022-10-24 16:37] LABS: Alanine Aminotransferase 16 U/L (6-35); Albumin Level 3.3 g/dL (3.5-5.1); Alkaline Phosphatase 118 U/L (38-126); Anion Gap 5 mmol/L (8-16); Aspartate Amino Transferase 20 U/L (14-36); Bilirubin,Total 0.2 mg/dL (0.2-1.3); Blood Urea Nitrogen 12 mg/dL (7-17); CRP 1.9 mg/dL (<1.0); Calcium 7.7 mg/dL (8.4-10.2); Carbon Dioxide 23 mmol/L (22-30); Chloride 109 mmol/L (98-107); Estimated CRCL calculation 91 ml/min; Estimated Glomerular Filt Rate > 60; Glucose 95 mg/dL (65-110); Potassium 4.2 mmol/L (3.4-5.0); Sodium 137 mmol/L (137-145)
[2022-10-24 17:20] LABS: Procalcitonin 0.1 ng/mL
--- NOTE | 2022-10-24 17:27 | PM.DS ---
DS: Admitting Diagnosis Discharge Date 10/24/2022 Admitting Diagnosis Lightheadedness DS: Discharge Diagnosis Discharge Diagnosis (1) Chest pain: Qualifiers: Chest pain type: unspecified Qualified Code(s): R07.9 - Chest pain, unspecified Code(s): R07.9 - Chest pain, unspecified Status: Acute Assessment and Plan: Admit to med tele Rule out for acute [place] with negative cardiac enzymes Pain has resolved Nitro p.r.n. Continue to monitor (2) Obstructive sleep apnea: Code(s): G47.33 - Obstructive sleep apnea (adult) (pediatric) Status: Acute Assessment and Plan: CPAP at nighttime (3) COPD (chronic obstructive pulmonary disease): Code(s): J44.9 - Chronic obstructive pulmonary disease, unspecified Status: Acute Assessment and Plan: Continue home meds Stable Not actively wheezing (4) Seizure: Code(s): R56.9 - Unspecified convulsions Status: Acute Assessment and Plan: Continue home meds (5) Coronary artery disease: Code(s): I25.10 - Atherosclerotic heart disease of [place] coronary artery without angina pectoris Status: Acute Assessment and Plan: Restart home meds Follow-up in outpatient setting (6) Tobacco dependence: Code(s): F17.200 - Nicotine dependence, unspecified, uncomplicated Status: Acute Assessment and Plan: Nicotine patch as needed DS: Summary Hospital Course Hospital Course: 57-year-old female with history of COPD, hypertension, hypothyroidism and other comorbidities is presenting with dizziness and lightheadedness. She also had some chest discomfort. All symptoms resolved with IV fluid resuscitation. Workup negative for acute cardiac etiology. Patient was discharged in stable condition with close outpatient follow-up by Cardiology and Primary Care. Symptoms thought to be secondary to dehydration. Please see above and med rec for details. Time Spent with Patient Time attestation: Total time spent providing and/or coordinating discharge services: DS: Data Data Completed and Pending Labs on day of discharge: Labs from last 24 hours 10/24/22 10/24/22 10/23/22 16:17 16:17 22:24 WBC 5.7 RBC 3.55 L Hgb 10.2 L D Hct 33.6 L MCV 94.6 MCH 28.7 MCHC 30.4 L RDW 15.2 H Plt Count 159 MPV 9.2 Immature Gran % (Auto) 1.2 H Neut % (Auto) 60.9 Lymph % (Auto) 29.7 [place] % (Auto) 5.1 Eos % (Auto) 2.4 Baso % (Auto) 0.7 Lymph # (Auto) 1.70 [place] # (Auto) 0.3 Eos # (Auto) 0.1 Baso # (Auto) 0.0 Abs Immat Gran (auto) 0.07 H Absolute Neuts (auto) 3.5 Absolute Nucleated RBC 0.0 Nucleated RBC % 0.0 D-Dimer Sodium 137 Potassium 4.2 Chloride 109 H Carbon Dioxide 23 Anion Gap 5 L BUN 12 Creatinine 0.60 L Estim Creat Clear Calc 91 Estimated GFR > 60 Glucose 95 Calcium 7.7 L Total Bilirubin 0.2 AST 20 ALT 16 Alkaline Phosphatase 118 Total Creatine Kinase Troponin I < 0.012 C-Reactive Protein Cancelled 1.9 H NT-Pro-B Natriuret Pep Total Protein 6.0 L Albumin 3.3 L Procalcitonin 0.1 10/23/22 10/23/22 10/23/22 18:26 18:10 18:09 WBC RBC Hgb Hct MCV MCH MCHC RDW Plt Count MPV Immature Gran % (Auto) Neut % (Auto) Lymph % (Auto) [place] % (Auto) Eos % (Auto) Baso % (Auto) Lymph # (Auto) [place] # (Auto) Eos # (Auto) Baso # (Auto) Abs Immat Gran (auto) Absolute Neuts (auto) Absolute Nucleated RBC Nucleated RBC % D-Dimer Sodium Potassium Chloride Carbon Dioxide Anion Gap BUN Creatinine Estim Creat Clear Calc Estimated GFR Glucose Calcium Total Bilirubin AST ALT Alkaline Phosphatase Total Creatine Kinase 69 Troponin I < 0.012 C-Reactive Protein NT-Pro-B Natriuret Pep 180 H Total Prot
== END 2022-10-24 19:04 | disposition home or self-care (01) ==
LOC: ANHED 20:11 → ANH3MEDSUR 21:33 → ANHIMU 10-24 17:27 → ANH3MEDSUR 10-26 12:59 → ANHIMU 10-26 12:59
PROVIDERS: Chiropractor; Preventive Medicine Aerospace Medicine; Admitting Provider Internal Medicine; Emergency Provider Physician Assistant; PCP Nurse Practitioner; Visit Provider Student in an Organized Health Care Education/Training Program
DX: G47.33 Obstructive sleep apnea (adult) (pediatric) (principal); R07.9 Chest pain, unspecified; R42 Dizziness and giddiness; R11.0 Nausea; R51.9 Headache, unspecified; R41.9 Unspecified symptoms and signs involving cognitive functions and awareness; J44.9 Chronic obstructive pulmonary disease, unspecified; I12.9 Hypertensive chronic kidney disease with stage 1 through stage 4 chronic kidney disease, or unspecified chronic kidney disease; N18.9 Chronic kidney disease, unspecified; Z95.5 Presence of coronary angioplasty implant and graft; G62.9 Polyneuropathy, unspecified; I70.0 Atherosclerosis of aorta; R94.31 Abnormal electrocardiogram [ECG] [EKG]; R06.02 Shortness of breath; R00.0 Tachycardia, unspecified; I25.10 Atherosclerotic heart disease of native coronary artery without angina pectoris; M85.80 Other specified disorders of bone density and structure, unspecified site; M13.80 Other specified arthritis, unspecified site; E03.9 Hypothyroidism, unspecified; R56.9 Unspecified convulsions; F17.210 Nicotine dependence, cigarettes, uncomplicated; F10.90 Alcohol use, unspecified, uncomplicated; Z79.02 Long term (current) use of antithrombotics/antiplatelets; Z79.899 Other long term (current) drug therapy
CPT/HCPCS: 36415; 70450; 71046; 80053; 82550; 83690; 83880; 84145; 84484; 85025; 85380; 85610; 85730; 86140; 93005; 94640; 96360; 96361; 99285; A9270; G0378; J7030; J7040

== ENCOUNTER 2022-11-03 11:57 | Outpatient (CLI) | payer MEDICARE, MEDICAID, SELFPAY ==
--- NOTE | 2022-11-24 21:44 | WPDSLEEPSTUD ---
Sleep Study Date of Study: 11/03/22 Ordering Provider: Adrian Gates APRN Interpreting Physician: April Lawson DO Sleep Study Type: CPAP Titration Height: 1.63 m Weight: 81.647 kg Body Mass Index: 30.9 Neck Circumference (inches): 15.25 [place]: 18 Reason for Sleep Study PSG on 08/02/2022 that showed overall AHI of 9.8 with desaturation down to 80%. REM AHI was 52.5. Sleep History Nancy Whatley is a 57-year-old female presents to the sleep lab for evaluation of loud snoring and daytime hypersomnia.? She has a history of obstructive sleep apnea, and a recent [place].? She constantly awakens from sleep short of breath. She frequently awakens at night with heartburn, belching or cough.? She constantly snores and snores loudly enough that others complain. She occasionally wakes up gasping for breath during the night. She constantly has breathing problems at night. She frequently sweats excessively at night. She occasionally notices her heart pounding or beating irregularly during the night. She frequently falls asleep during the day and frequently falls asleep involuntarily. She occasionally falls asleep while driving. She frequently experiences loss of muscle tone with strong emotion. She frequently has trouble at work because of sleepiness. She never feels paralyzed on waking or falling asleep. She rarely experiences vivid dreams upon waking or falling asleep. She does not feel afraid of going to sleep. She rarely has nightmares. She rarely recalls her dreams. She constantly has thoughts racing through her mind. She frequently feels sad or depressed. She constantly feels anxiety or worry about things. She constantly feels muscle tension. She rarely notices parts of her body jerk. She occasionally kicks during the night. She constantly feels crawling or aching feelings in her legs. She frequently feels leg pain at night. She never grinds her teeth or has morning jaw pain. She constantly feels bothered by pain during the day and is frequently awakened by pain during the night. She constantly wakes up feeling stiff, sore, and achy in the morning with pain in her neck, spine, or joints. Normal bedtime is around 9pm or 10pm on the weekdays the same on the weekends, taking ?forever? fall asleep. She typically gets about 5 hours of sleep per night. Her wake up time is between 5 to 6am on the weekdays and same on the weekends. She typically wakes up around 3 or 4 times per night, sometimes awake for a few minutes and other times up to 30 minutes or an hour. During those nocturnal awakenings she will go to the bathroom, look at the time and try to go back to sleep. Habits:? She has smoked tobacco for 40 years. She typically drinks 2 caffeinated beverages per day. She typically drinks 2 alcoholic beverages per day. No recreational substances. [facility] Past Medical History Medical History Anxiety COPD (chronic obstructive pulmonary disease) Coronary artery disease Depression Hypothyroidism Inflammatory arthritis Multiple abrasions DRU (obstructive sleep apnea) Seizure Surgical History Surgical History History of S/P cardiac cath May 2022 s/p stent x1 Social History Social History Smoking packs per day: 0.5 Smoking cigarettes per day: 10.0 Years smoked: 40 Smoking pack-years: 20.00 Smoking status: Current every day smoker Tobacco type: cigarettes Alcohol intake: current Drinks per week: 3 Alcohol use details: [employer] Substance use: never Substance use type: does not use Lack of Transportation: No Lack of Food: Never True Current Housing: I Have Housing Concerned About Future Housing: No Difficulty Paying Gas/Electric Bills: No Difficulty Paying for Meds: No Currently Unemployed: No Education: High School Diploma/GED Difficult
[2022-11-24 21:53] VITALS: BMI 30.9
== END 2022-11-04 06:37 | disposition home or self-care (01) ==
LOC: ANHCSM 12:00
PROVIDERS: PCP Nurse Practitioner; Visit Provider Nurse Practitioner Family
DX: G47.33 Obstructive sleep apnea (adult) (pediatric) (principal); J44.9 Chronic obstructive pulmonary disease, unspecified; I25.10 Atherosclerotic heart disease of native coronary artery without angina pectoris; E03.9 Hypothyroidism, unspecified; F17.210 Nicotine dependence, cigarettes, uncomplicated
CPT/HCPCS: 95811

== ENCOUNTER 2023-04-30 08:08 | Outpatient (CLI) | payer MEDICARE, MEDICAID, SELFPAY ==
--- NOTE | 2023-04-30 14:58 | WPDSIXMINUTE ---
Six Minute Walk Procedure Procedure Performed Pulmonary Stress Test (6 min walk) Six Minute Walk Six Minute Walk: This is a 6 minute walk test. The test was performed and interpreted in accordance with the 2014 ERS/ATS task force guidelines. Findings: The patient's resting room air oxygen saturation measured by pulse oximetry was 93% and heart rate was 111 bpm. Patient ambulated for 427 meters and oxygen saturation remained 92 to 95%. Heart rate at the end of the study was 129 bpm. The patient did not qualify for supplemental oxygen at rest or with ambulation. There are no prior studies for comparison.
== END 2023-04-30 08:09 | disposition home or self-care (01) ==
LOC: ANHPFT 08:13
PROVIDERS: Visit Provider Physician Assistant
DX: J44.9 Chronic obstructive pulmonary disease, unspecified (principal)
CPT/HCPCS: 94618

== ENCOUNTER 2023-08-09 13:03 | Outpatient (CLI) | payer MEDICARE, MEDICAID, SELFPAY ==
--- NOTE | ~2023-08-09 | CT_ITS ---
CT Scan of the Chest without Contrast: Clinical Indication: Lung cancer screening, nicotine dependence Technique: Contiguous sections were acquired throughout the chest without intravenous contrast. Dose reduction technique was used on this scan by utilizing automated exposure control and iterative recon struction technique. The dose-length product (DLP) was 110.94 mGy-cm. COMPARISON: 08/07/2022 Findings: There is no evidence of any significant mediastinal, hilar or axillary lymphadenopathy. Coronary shannon ry calcifications are present. There is no evidence of pleural or pericardial effusion. Stable 4 mm right upper lobe pulmonary nodule (axial image 39). Calcified right upper lobe granuloma noted. Images through the upper abdomen reveal no abnormalities. Impression: Lung RADS 2: Benign appearance. 12 month follow-up screening CT advised. Reviewed, dictated and finalized at [facility]. Impression: Lung RADS 2: Benign appearance. 12 month follow-up screening CT advised.
== END 2023-08-09 13:04 | disposition home or self-care (01) ==
LOC: ANHIMG 13:04
PROVIDERS: Visit Provider Physician Assistant
DX: Z12.2 Encounter for screening for malignant neoplasm of respiratory organs (principal); Z87.891 Personal history of nicotine dependence
CPT/HCPCS: 71271

== ENCOUNTER 2024-08-28 15:05 | Emergency (ER) | payer MEDICARE, MEDICAID, SELFPAY ==
--- NOTE | ~2024-08-28 | XR_ITS ---
EXAM: XR foot LT min 3V DATE: 08/28/2024 15:32 HISTORY: FELL TODAY AND HAVING FOOT AND TOE PAIN . COMPARISON: None available. FINDINGS: Normal mineralization. Transverse, nondisplaced navicular fracture. No lytic or blastic le kory. Mild scattered degenerative changes. Achilles enthesopathy. No erosion or periosteal change. Do rsal soft tissue swelling. IMPRESSION: Transverse, nondisplaced navicular fracture. Reviewed, dictated and finalized at location K.
--- NOTE | ~2024-08-28 | CT_ITS ---
EXAMINATION: CTA chest PE protocol DATE: 08/28/2024 18:34 INDICATION: cp, sob, +dimer TECHNIQUE: Computed tomography angiography (CTA) of the chest was performed with 100 mL Omnipaque-350 intravenous contrast timed to evaluate the pulmonary arteries. Coronal maximum intensity projection 3D-reconstructions were created by the technologist. The dose-length product (DLP) was 294.11 mGy-cm. Automated exposure control and iterative reconstruction technique were employed. COMPARISON: CT lung screening 08/09/2023. FINDINGS: Lung parenchyma and airways: Scattered sub-6 mm pulmonary nodules and calcified granulomas, the large st present in the right upper lobe, measuring 5 mm, demonstrating slight interval growth since the pr ior CT examination, the remaining nodules appear stable. Lingular scar, minimal medial right middle l obe atelectasis, otherwise clear. Minimal airway debris in the right lower lobe bronchus, airways oth erwise patent. Mild bronchial wall thickening. Pleura: Unremarkable. Thoracic inlet, axillae and chest wall: Unremarkable. Thoracic aorta: No significant dilation. No dissection. Mediastinum: Normal. Heart and pericardium: Normal. Coronary artery calcifications: Moderate. Upper abdomen: No significant finding. Bones: No acute osseous finding. Pulmonary arteries: Study quality: Adequate. No pulmonary emboli detected. IMPRESSION: No CT evidence of acute pulmonary embolus. Minimal right lower lobe airway debris/secretions. Mild bronchial wall thickening as can be seen with bronchitis. 5 mm right upper lobe pulmonary nodule which demonstrates slight interval growth, recommend low-dose noncontrast CT follow-up of the chest in 6 months. Multiple additional sub-6 mm pulmonary nodules are noted that are unchanged. Reviewed, dictated and finalized at location K. IMPRESSION: No CT evidence of acute pulmonary embolus. Minimal right lower lobe airway debris/secretions. Mild bronchial wall thickeni ng as can be seen with bronchitis. 5 mm right upper lobe pulmonary nodule which demonstrates slight interval growt h, recommend low-dose noncontrast CT follow-up of the chest in 6 months. Multiple additional sub-6 mm pulmonary nodules are noted that are unchanged.
--- NOTE | ~2024-08-28 | XR_ITS ---
EXAMINATION: XR chest 2V Exam Date/Time: 08/28/2024 15:25 CDT HISTORY: CP x 2 hrs Comparison: 10/24/2022; CT lung screening 08/09/2023. RESULT: Lines, tubes, and devices: Coronary artery stent. Lungs and pleura: No focal consolidation, pleural effusion, or pneumothorax. Left lower lung scar/at electasis. Cardiomediastinal silhouette: Stable. Other: No acute osseous or upper abdominal finding. IMPRESSION: No acute cardiopulmonary process. Reviewed, dictated and finalized at location K.
--- NOTE | 2024-08-28 15:06 | ECG_ITS ---
Test Date: 2024-08-28 15:14:31 Measurements Intervals [place] Rate: 103 P: 51 UT: 155 QRS: 26 QRSD: 77 T: 38 QT: 315 QTc: 414 Interpretive Statements SINUS TACHYCARDIA POSSIBLE LEFT ATRIAL ENLARGEMENT BASELINE ARTIFACT- I, II, III, AVR, AVL, AVF, V3-V6 BORDERLINE ECG No previous ECG available for comparison Electronically Signed On 08-28-2024 15:24:21 CDT by Zac Kendrick D.O.
[2024-08-28 15:17] VITALS: BP 137/90; PULSE 105; RESP 19; TEMP 36.4; O2SAT 100
--- OUTSIDE RECORDS SUMMARY | 2024-08-28 15:23 | XMS_ITS | Patient Health Record ---
Author Organization [facility] Address [address] [place] [address] Care Team Providers Care Delphi Programmer Name Role Phone Alcides Chan Primary Care Provider [facility], [facility] Unavailable U navailable Allergies No Known Allergies Reason For Referral No Information Medications Medication SIG (Take, Route, Frequency, Duration) Notes Start Date End Date Status Nicorette 4 MG 1 piece for 30 minut e as needed FOR SMOKING CESSATION Mouth/Throat EVERY 1-2 HOURS 11/20/2021 Active DULoxetine HCl 60 MG 1 capsule Orally On ce a day for 30 Not-Taking Fluticasone Propionate 50 MCG/ACT 1 spray in each nostril Nasally Once a day for 30 day(s) 06/13/2020 Not-Taking Cyanocobalamin 1000 MCG two tablets Oral ly Once a day 07/07/2021 Active Celecoxib 200 MG 1 capsule with food NEEDED FOR PAIN Orally Once a day 09/08/2021 Active Bisacodyl 5 MG 1 tablet as needed Orally Once a day for 30 day(s) 01/23/2020 Not-Taking Folic Acid 1 MG 1 tablet Orally Once a day 05/08/2021 Active Albuterol Sulfate (2.5 MG/3ML) 0.083% 3 ml as needed Inhalation every 6 hrs 01/23/2021 Active Omeprazole 40 MG 1 capsule 30 minutes before morning meal Orally Once a day for 30 day(s) 01/23/2021 Not-Taking Gabapentin 300 MG TAKE ONE CAPSULE BY MOUTH TWICE DAILY for 15 Active Senna 8.6 MG 2 tablets at bedtime as needed Orally Once a day 05/08/2021 Not-Taking tiZANidine HCl 4 MG 1 tablet as needed Orally Three times a day for 30 days 09/26/2019 Not-Taking traZODone HCl 50 MG 1 tablet at bedtime as needed Orally Once a day Active Nicorette 4 MG 1 piece for 30 minut e as needed Mouth/Throat every 2 hours 05/08/2021 Not-Taking Nicotine Step 1 21 MG/24HR 1 patch to sk in Transdermal Once a day 05/08/2021 Not-Takin g Nebulizer System All-In-One - as directed FOR DX J44.9 EXTERNALLY DIRECTED 01/23/2021 Not-Taking Budesonide-Formoterol Fumarate 80-4.5 MCG/ACT 2 puffs Inhalation Once a day Not-Taking Spiriva HandiHaler 18 MCG 1 capsule by i nhaling the contents of the capsule using the HandiHaler device Inhalation Once a day Not-Taking Vitamin D (Ergocalciferol) 1.25 MG (37691 UT) TAKE 1 CAPSULE BY MOUTH EVERY WEEK for 28 Active Levothyroxine Sodium 50 MCG 1 tablet in the morning on an empty stomach Orally Once a day for 90 days Active Varenicline Tartrate 0.5 MG 1 tablet after eating with a full glass of water DAILY FOR 3 DAYS THEN TWICE DAILY FOR 4 DAYS, THEN BEGIN 1MG TABS Orally DIRECTED 02/11/2022 Active Varenicline Tartrate 1 MG 1 tablet after eating with a full glass of water (BEGIN AFTER COMPLETING 1MG TABS) Orally twice a day 01/23/2022 Active Lidocaine 5 % 1 patch TO LOWER GIL K AND remove after 12 hours Externally Once a day Active rOPINIRole HCl 4 MG TAKE 1 TABLET BY HAMMAD TH EVERY NIGHT AT BEDTIME for 90 Active Albuterol Sulfate HFA 108 (90 Base) MCG/ACT INHALE 1-2 PUFFS BY MOUTH EVERY 4 HOURS NEEDED FOR DYSPNEA Active DULoxetine HCl 60 MG 1 capsule Orally On ce a day Active Nicorette 4 MG 1 lozenge as needed Mouth/Throat EVERY 4 HOURS 01/23/2021 Not-Taking Amitriptyline HCl 50 MG 1 tablet at bedt marina Orally Once a day for 30 days Active Immunizations Vaccine Route Administration Date Status Comme nts FLU VAC NO PRSV 4VAL 6 mo+ IM Intramuscular 01/02/2019 Administered Pt tolerated we ll. Denies questions or concerns FLU VAC NO PRSV 4VAL 6 mo+ IM Intramuscular 01/16/2020 Administered Patient tolerat ed well. VIS date 11/10/18. Social History Tobacco Use: Social History Observation Description Date Details (start date - stop date) Current Smoker NA - NA Sex Assigned At : Social History Observation Description Sex Assigned At Female Dont use, Tobacco Use/Smoking Question Answer Notes Are you a current every day smoker Alcohol Screen (Audit-C) Question Answer Notes Did you have a drink contain ing alcohol in the past year? Yes How often did you have a dri nk containing alcohol in the past year? 2 to 3 times a week (3 points) How many drinks did you have on a typical day when you were drinking in the past year? 3 or 4 drinks (1 point) How often did you have 6 or more drinks on one occasion in the past year? Weekly (3 points) Points 7 Interpretation Positive PRAPARE Question Answer Notes Date Completed/Updated: 05/09/2019 What is your current housing situation? I do not have housing (staying with others, in a hotel, in a jail, living outside on the street, on a beach, or in a park) Are you worried about losing your housing? I choose not to answer this question What is the highest level of school that you have finished? More than high school What is your current work situation? Unemployed and seeking work In the past year, have you o r any family members you live with been unable to get any of the following when it was really needed? Check all that apply Food,Clothing,Utilities,Phone Has lack of transportation k ept you from medical appointments, meetings, work or from getting things needed for daily living? Yes, it has kept me from medical appointments or from getting my medications,Yes, it has kept me from non-medical meetings, appointments, work, or getting things needed for daily living How often do you see or talk to people that you care about and feel close to? (For example: talking to friends on the phone, visiting friends or family, going to spiritism or club meetings) Less than once a week How stressed are you? Stress is when someone feels tense, nervous, anxious, or can\t sleep at night because their mind is troubled Very much In the past year have you sp ent more than 2 nights in a row in a long-term, long-term, group home center, or juvenile correctional facility? No Are you a refugee? No What country are you from? [place] Do you feel physically and e motionally safe where you currently live? Yes In the past year, have you b een afraid of your partner or ex-partner? Yes PRAPARE Score: 15 Enabling Services Provided? Yes Please specify Other Services Section Notes: Patient is a 50 year old div orced, female. Patient reports she was born in [place], [place] and raised in [place], [place]. Patient reports she has two daughters ages 21 and 11 years old. Patient reports her 11 year old daugther was removed from her custody because they both tested positive when she gave . Patient reports her sister has custody of her 11 year old daughter. Patient reports she is currently homeless and living with various people. Patient reports she recently got a job at [employer] as a foreign. Patient is a 50 year old div orced, female. Patient reports she was born in [place], [place] and raised in [place], [place]. Patient reports she has two daughters ages 21 and 11 years old. Patient reports her 11 year old daugther was removed from her custody because they both tested positive when she gave . Patient reports her sister has custody of her 11 year old daughter. Patient reports she is currently homeless and living with various people. Patient reports she recently got a job at [employer] as a foreign. Patient is a 50 year old div orced, female. Patient reports she was born in [place], [place] and raised in [place], [place]. Patient reports she has two daughters ages 21 and 11 years old. Patient reports her 11 year old daugther was removed from her custody because they both tested positive when she gave . Patient reports her sister has custody of her 11 year old daughter. Patient reports she is currently homeless and living with various people. Patient reports she recently got a job at [employer] as a foreign. Patient is a 50 year old div orced, female. Patient reports she was born in [place], [place] and raised in [place], [place]. Patient reports she has two daughters ages 21 and 11 years old. Patient reports her 11 year old daugther was removed from her custody because they both tested positive when she gave . Patient reports her sister has custody of her 11 year old daughter. Patient reports she is currently homeless and living with various people. Patient reports she recently got a job at [employer] as a foreign. Patient is a 50 year old div orced, female. Patient reports she was born in [place], [place] and raised in [place], [place]. Patient reports she has two daughters ages 21 and 11 years old. Patient reports her 11 year old daugther was removed from her custody because they both tested positive when she gave . Patient reports her sister has custody of her 11 year old daughter. Patient reports she is currently homeless and living with various people. Patient reports she recently got a job at [employer] as a foreign. Patient is a 50 year old div orced, female. Patient reports she was born in [place], [place] and raised in [place], [place]. Patient reports she has two daughters ages 21 and 11 years old. Patient reports her 11 year old daugther was removed from her custody because they both tested positive when she gave . Patient reports her sister has custody of her 11 year old daughter. Patient reports she is currently homeless and living with various people. Patient reports she recently got a job at [employer] as a foreign. Patient is a 50 year old div orced, female. Patient reports she was born in [place], [place] and raised in [place], [place]. Patient reports she has two daughters ages 21 and 11 years old. Patient reports her 11 year old daugther was removed from her custody because they both tested positive when she gave . Patient reports her sister has custody of her 11 year old daughter. Patient reports she is currently homeless and living with various people. Patient reports she recently got a job at [employer] as a foreign. Patient is a 50 year old div orced, female. Patient reports she was born in [place] and raised in [place], [place]. Patient reports she has two daughters ages 21 and 11 years old. Patient reports her 11 year old daugther was removed from her custody because they both tested positive when she gave . Patient reports her sister has custody of her 11 year old daughter. Patient reports she is currently homeless and living with various people. Patient reports she recently got a job at [employer] as a foreign. Patient is a 50 year old div orced, female. Patient reports she was born in [place] and raised in [place], [place]. Patient reports she has two daughters ages 21 and 11 years old. Patient reports her 11 year old daugther was removed from her custody because they both tested positive when she gave . Patient reports her sister has custody of her 11 year old daughter. Patient reports she is currently homeless and living with various people. Patient reports she recently got a job at [employer] as a foreign. Patient is a 50 year old div orced, female. Patient reports she was born in [place] and raised in [place], [place]. Patient reports she has two daughters ages 21 and 11 years old. Patient reports her 11 year old daugther was removed from her custody because they both tested positive when she gave . Patient reports her sister has custody of her 11 year old daughter. Patient reports she is currently homeless and living with various people. Patient reports she recently got a job at [employer] as a foreign. Patient is a 50 year old div orced, female. Patient reports she was born in [place] and raised in [place], [place]. Patient reports she has two daughters ages 21 and 11 years old. Patient reports her 11 year old daugther was removed from her custody because they both tested positive when she gave . Patient reports her sister has custody of her 11 year old daughter. Patient reports she is currently homeless and living with various people. Patient reports she recently got a job at [employer] as a foreign. Patient is a 50 year old div orced, female. Patient reports she was born in [place] and raised in [place], [place]. Patient reports she has two daughters ages 21 and 11 years old. Patient reports her 11 year old daugther was removed from her custody because they both tested positive when she gave . Patient reports her sister has custody of her 11 year old daughter. Patient reports she is currently homeless and living with various people. Patient reports she recently got a job at [employer] as a foreign. Patient is a 50 year old div orced, female. Patient reports she was born in [place] and raised in [place], [place]. Patient reports she has two daughters ages 21 and 11 years old. Patient reports her 11 year old daugther was removed from her custody because they both tested positive when she gave . Patient reports her sister has custody of her 11 year old daughter. Patient reports she is currently homeless and living with various people. Patient reports she recently got a job at [employer] as a foreign. Problems Problem Type SNOMED Code ICD Code Onset Dates Problem Status W/U Status Risk Notes Problem Tobacco user (337875533) Nicotine dependence, unspecified, uncomplicated (F17.200) Active confirmed Problem 618050495 Anxiety disorder, unspecified (F41.9) Active confirmed Problem 67427872 Other chronic pain (G89.29) Active confirmed Problem 98490412 Slow transit constipation (K59.01) Active confirmed Problem 72846098 Cervicalgia (M54.2) Active confirmed Problem 464509338 Lumbago with sciatica, right side (M54.41) Active confirmed Problem 416685402 Lumbago with sciatica, left side (M54.42) Active confirmed Problem 215231914 Fibromyalgia (M79.7) Active confirmed supported by mood disorder, sleep disorder, cognitive slowing, and multi-site myalgias Problem Insomnia (957615060) Insomnia (G47.00) Active confirmed Problem Vitamin D deficiency (42227392) Vitamin D deficiency (E55.9) Active confirmed Problem 83595312 Degenerative disc disease, lumbar (M51.36) Active confirmed Problem Sleep apnea (03597607) Sleep apnea (G47.30) Active confirmed Problem Vitamin B12 deficiency (non anemic) (59446756) B12 deficiency (E53.8) Active confirmed Problem Bacterial vaginosis (disorder) (761808467) Vaginosis (N76.0) Active confirmed Problem Restless legs syndrome (92872095) Restless leg syndrome (G25.81) Active confirmed Problem 95654730 Chronic fatigue (R53.82) Active confirmed Problem Vitamin B12 deficiency (non anemic) (05260930) Vitamin B 12 deficiency (E53.8) Active confirmed Problem Memory loss (35565796) Memory loss (R41.3) Active confirmed Problem Moderate recurrent major depression (99546145) Moderate episode of recurrent major depressive disorder (F33.1) 017 Active confirmed Problem 946484676 Lung nodules (R91.8) Active confirmed Problem Gynecological examination normal (963066228206109) Well woman exam with routine gynecological exam (Z01.419) Active confirmed Problem Severe major depression, single episode, without psychotic features (46918952) Major depress dis, severe (F32.2) Active confirmed Problem 11798936 Hypothyroidism, unspecified type (E03.9) Active confirmed Problem 83900542 Chronic obstructive pulmonary disease, unspecified COPD type (J44.9) 022 Active confirmed Problem 96824203185900831 Bilateral carp al tunnel syndrome (G56.03) Active confirmed Problem Alcohol dependence (07359099) Alcohol use disorder, moderate, dependence (F10.20) Active confirmed Problem 595920529280638 Left carpal tunnel syndrome (G56.02) Active confirmed Problem Tobacco use (831468972) Tobacco use disorder (F17.200) Active confirmed Problem 049985959 Facet arthropathy, lumbar (M12.88) Active confirmed Problem Obesity (737505831) Obesity, unspecified classification, unspecified obesity type, unspecified whether serious comorbidity present (E66.9) Active confirmed Problem Restless legs (02104279) Restless legs syndrome (RLS) (G25.81) Active confirmed Problem 7904192404436218 Patellofemoral syndrome of right knee (M22.2X1) Active confirmed Problem 314041371 Reflux esophagitis (K21.0) Active confirmed Problem 271059059 Peripheral arterial disease (I73.9) Active confirmed Problem 229108989 Ulnar neuropathy of both upper extremities (G56.23) Active confirmed Problem 14722911 Other vitamin B12 deficiency anemia (D51.8) Active confirmed Plan Of Treatment Pending Test Test Name Order Date Occult Blood, Fecal, [place] (364472) 019 Hemoglobin A1c* 10/24/2018 CMP13 10/24/2018 Lipid Panel* 10/24/2018 Insurance Providers Payer Name Payer Address Payer Phone Subscriber Number Group Number Insured Name Patient Relationship to Insured Coverage Start Date Coverage End Date [facility] [address] [place] [address] [id number] Nancy Whatley Self - patient is the insured 8 [facility] [address] [place] [address] [id number] Nancy Whatley Self - patient is the insured 7 [facility] [address] [place] [address] [id number] Nancy Whatley Self - patient is the insured 0 [facility] [address] [place] [address] [id number] Nancy Whatley Self - patient is the insured 0 [facility] [address] [place] [address] [id number] Nancy Whatley Self - patient is the insured 2 Medications Administered Medication Instructions Date of Administration Dosage Notes Cyanocobalamin (B-12) 05/29/2021 1000 ug Pt tolerated injection well. Pt voiced no questions or concerns Cyanocobalamin (B-12) 06/16/2021 1000 ug Pt. tolerated well. No concerns or questions at this time. Cyanocobalamin 05/12/2021 1000 ug Pt. tolera lorene well. No concerns or questions at this time. Vivitrol 05/19/2019 380 mg Instrument Technologist [place] Pt tolerated procedure well. No questions or concerns voiced. Vivitrol 06/16/2019 380 mg Pt tolerated w ell. Vivitrol 07/14/2019 380 mg Instrument Technologist [place]. Pt tolerated well. Voiced no questions or concerns at present time. Vivitrol 08/11/2019 380 mg Instrument Technologist [place]es. Pt tolerated well. Voiced no questions or concerns at present time. Medical (General) History Medical History History ICD Code hyperlipidemia back pain with lower extremity radiculop athy Alcohol use disorder Spinal stenosis Surgical History Surgery Date(Month/Year) LEFT ULNER NERVE TRANSPOSITION ORIF RIGHT WRIST DEEP LACERATION REPAIR RIGHT ANTERIOR LE G ablation 11/2021 Hospitalization History Reason Date(Month/Year)
--- OUTSIDE RECORDS SUMMARY | 2024-08-28 15:24 | XMS_ITS | Clinical Summary ---
Author Organization [facility] Address [address], [facility] [address] [place] [address] Phone Care Team Providers Care Construction Project Manager Name Role Phone Juana James APRN, HOST/HOSTESS [facility] Medications polyethylene glycol (MIRALAX) Powder Please use entire 255 gram for colonoscopy prep as directed by office. 1 Bottle 8 Active Social History Tobacco Use Types Packs/Day Years Used Date Smoking Tobacco: Never Assessed Comments Unknown Sex and Gender Information Value Date Recorded Sex Assigned at Not on file Legal Sex Female 7:55 AM CDT Gender Identity Not on file Sexual Orientation Not on file Plan of Treatment Health Maintenance Due Date Last Done Comments Hepatitis C Virus (HCV) Screening 1965 TdaP Immunization 1965 Hepatitis B Immunization (1 of 3 - 19+ 3-dose series) 1984 Colonoscopy 2010 Colorectal Cancer Screening 2010 Cologuard 2015 Immunochemical Fecal Occult Blood 2015 Pneumococcal Immunization (50+ years) (1 of 1 - PCV) 2015 Zoster Immunization (1 of 2) 2015 SARS-COV-2 Immunization ( - 2023- season) 2023 04/21/2021, 08/22/2020, 07/25/2020 Influenza Immunization (Season Ended) 2024 12/17/2016, 04/20/2016, 03/29/2016, Additional history exists Respiratory Syncytial Virus (RSV) Immunization (Adult) (1 - 1-dose 75+ series) 2040 Human Papillomavirus (HPV) Immunization Aged Out No longer eligible based on patient's age to complete this topic Meningococcal Immunization (ACWY) Aged Out No longer eligible based on patient's age to complete this topic Rotavirus Immunization Aged Out No lo nger eligible based on patient's age to complete this topic Insurance , [address] [place] [address] MEDICAID [place] , [address] [place] [address] Care Teams Construction Project Manager Relationship Specialty Start Date End Date Juana James APRN, HOST/HOSTESS [address] [place] [address] [place] [address] PCP - General Advanced Practice Nurse 09/07/17
--- OUTSIDE RECORDS SUMMARY | 2024-08-28 15:24 | XMS_ITS | Patient Health Record ---
Author Organization [facility] [employer] Address [address] [place] [address] Care Team Providers Care Relief Salesperson Name Role Phone Emmanuel COBB-Lis Primary Care Provider Heidi Dora Chaidez Unavailable [phone] PitoАлександрet Unavailable [phone] Allergies No Known Allergies Results Component Value Reference Range Notes UDT Reviewed date:11/23/2023 10:03:36 AM Interpretation: Performing Lab: Notes/Report: THC n 0 - 50 ng/ml Cocaine n 0 - 300 ng/ml Amphetamine n 0 - 1000 ng/ml Buprenorphine (BUP) n 0 - 10 ng/ml Secobarbital (Bar) n 0 - 300 ng/ml Oxazepam (BZO) p 0 - 300 ng/ml 7-jvnmvgusmy-7,8-xitzptea-6,3-diphenylpyrrolidine (ANABELLA P) n 0 - 300 ng/ml Methamphetamine (MET) n 0 - 1000 ng/ml Methylenedioxymethamphetamine (MDMA) n 0 - 500 ng/ml Morphine (MOP 300/QIP2526) n 0 - 300 ng/ml Methadone (MTD) n 0 - 300 ng/ml Phencyclidine (PCP) n 0 - 25 ng/ml Nortriptyline (TCA) n 0 - 1000 ng/ml Oxycodone n 0 - 300 ng/ml x n 0 - 300 ng/ml Reason For Referral No Information Medications Medication SIG (Take, Route, Frequency, Duration) Notes Start Date End Date Status Fluticasone Propionate 50 MCG/ACT Nasal for 30 Days Active Metoprolol Tartrate 50 MG Oral for 90 Days Active Wegovy 0.5 MG/0.5ML 0.5 mL Subcutaneous Active Movantik 25 MG Oral for 30 Days Active Albuterol Sulfate HFA 108 (90 Base) MCG/ACT INHALE 1-2 PUFFS EVERY 4-6 HOURS NEEDED FOR SHORTNESS OF BREATH OR WHEEZING Inhalation for 16 Days Active Spironolactone 25 MG Oral for 90 Days Active Allopurinol 300 MG Oral for 90 Days Active Potassium Chloride ER 20 MEQ TAKE 2 TABLETS BY MOUTH TWICE DAILY Oral for 30 Days Active traZODone HCl 100 MG 1 tablet at bedtime Oral Once a day for 30 days Active DULoxetine HCl 60 MG 1 capsule Oral Once a day for 30 days Active Vitamin B 12 Active Jardiance 10 MG Oral for 90 Days Active Pantoprazole Sodium 20 MG Oral for 90 Days Active Atorvastatin Calcium 40 MG Oral for 90 Days Active Nicotine Step 1 21 MG/24HR 1 patch to skin Transdermal Once a day for 30 days generic is covered 08/15/2024 10/14/2024 Active Levothyroxine Sodium 50 MCG Oral for 90 Days Active Vitamin D3 50 MCG (2000 UT) TAKE 1 CAPSULE BY MOUTH DAILY Oral for 30 Days Active Folic Acid 1 MG Oral for 90 Days Active Social History Tobacco Use: Social History Observation Description Date Details (start date - stop date) Current Smoker 03/29/1979 - NA Sex Assigned At : Social History Observation Description Sex Assigned At Female Tobacco Control (Standard) Question Answer Notes Tobacco use: Current smoker When did you start smoking? 03/29/1979 How often do you smoke cigarettes? Every day How many cigarettes a day do you smoke? 6-10 How soon after you wake up do you smoke your fir st cigarette? 31-60 minutes Are you interested in quitting? Not ready to danielle t AUDIT-C (Standard) Question Answer Notes Did you have a drink contain ing alcohol in the past year? Yes How often did you have six o r more drinks on one occasion in the past year? 2 to 3 times per week (3 points) How many drinks did you have on a typical day when you were drinking in the past year? 10 or more drinks (4 points) How often did you have a dri nk containing alcohol in the past year? 2 to 3 times a week (3 points) Section Notes: Been for years, alireza es in [place] alone. Grew up in [place], 3 siblings- only talks to one. She has 2 children, my sister has had one of them since born since the baby and I both tested positive for drugs at , I tried to fight it in court. My other daughter is in assisted. Education/employment: some college, on disability for 3 yrs Been for years, alireza es in [place] alone. Grew up in [place], 3 siblings- only talks to one. She has 2 children, my sister has had one of them since born since the baby and I both tested positive for drugs at , I tried to fight it in court. My other daughter is in assisted. Education/employment: some college, on disability for 3 yrs Been for years, alireza es in [place] alone. Grew up in [place], 3 siblings- only talks to one. She has 2 children, my sister has had one of them since born since the baby and I both tested positive for drugs at , I tried to fight it in court. My other daughter is in assisted. Education/employment: some college, on disability for 3 yrs Been for years, alireza es in [place] alone. Grew up in [place], 3 siblings- only talks to one. She has 2 children, my sister has had one of them since born since the baby and I both tested positive for drugs at , I tried to fight it in court. My other daughter is in assisted. Education/employment: some college, on disability for 3 yrs Been for years, alireza es in [place] alone. Grew up in [place], 3 siblings- only talks to one. She has 2 children, my sister has had one of them since born since the baby and I both tested positive for drugs at , I tried to fight it in court. My other daughter is in assisted. Education/employment: some college, on disability for 3 yrs Been for years, alireza es in [place] alone. Grew up in [place], 3 siblings- only talks to one. She has 2 children, my sister has had one of them since born since the baby and I both tested positive for drugs at , I tried to fight it in court. My other daughter is in assisted. 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 [place] [id number] [facility] [address] [place] [address] 11/23/2023 Veronica Woloszynek Generalized anxiety disorder F41.1 ; Moderately severe recurrent major depression F33.2 and Chronic insomnia F51.[address] [facility] [address] [place] [address] 12/14/2023 Veronica Woloszynek Generalized anxiety disorder F41.1 ; Moderately severe recurrent major depression F33.2 and Chronic insomnia F51.[address] [facility] [address] [place] [address] 01/12/2024 Veronica Woloszynek Generalized anxiety disorder F41.1 ; Mild recurrent major depression F33.0 and Chronic insomnia F51.[address] [facility] [address] [place] [address] 03/14/2024 Dora Quintana Generalized anxiety disorder F41.1 ; Moderately severe recurrent major depression F33.2 and Chronic insomnia F51.[address] [facility] [address] [place] [address] 2024 Dora Quintana Generalized anxiety disorder F41.1 ; Moderately severe recurrent major depression F33.2 ; Chronic insomnia F51.04 and Current nicotine use Z72.[address] [address] 05/22/2024 Dora Quintana Generalized anxiety disorder F41.1 ; Moderately severe recurrent major depression F33.2 ; Chronic insomnia F51.04 and Current nicotine use Z72.[address] [address] 06/06/2024 Dora Quintana [address] [address] 08/15/2024 Dora Quintana Nicotine use Z72.0 ; Generalized anxiety disorder F41.1 ; Chronic insomnia F51.04 ; Major depressive disorder, recurrent, moderate F33.1 ; Benign essential HTN I10 and Encounter for screening for depression Z13.[address] [address] 12/14/2023 Veronica Sheldon [address] [address] 07/05/2024 Dora Quintana Moderately severe recurrent major depression F33.[address] [address] 07/11/2024 Dora Quintana [address] [address] 08/16/2024 Dora Quintana Assessments Encounter Date Diagnosis (ICD Code) Assessment Notes Treatment Notes Treatment Clinical Notes Section Notes 11/23/2023 Generalized anxiety disorder (ICD-10 - F41.1) as above 11/23/2023 Moderately severe recurrent major depression (ICD-10 - F33.2) start abilify 2mg daily cont duloxetine 60mg but TAKE DAILY-last filled #90 10/20/23 recommend therapy Dx: MDDR, RIKKI, chronic insomnia Hx alcohol, polysubstance abuse Diff: trauma, personality Context: chronic pain/fatigue; high interpersonal stressors PDMP: regular gabapentin, four opiate fills June-July; no BZO fill UDS +bzo; denies any use; send for conf discuss dx and tx considerations and importance of consistency/adher ence with meds, no point increasing SNRI if missing half the time. start taking daily and why. Discuss possible adjunct mood stabilizing agent for depression/anxiet y/irritable/mood lability. lamotrigine not good option if inconsistent with meds. discuss atypicals, says took sisters manuel once long time ago and tore up the house. Shared decision to instead add abilify, review r/b/se, emphasis metabolic and movement. also discuss medication won't fix all the psychosocial issues, ineffective coping; therapy is indicated IOP [place]-declines, doesn't feel needed HIGHLY recommend therapy-declines currently f/u in 2-3 wks, earlier if concerns. 12/14/2023 Generalized anxiety disorder (ICD-10 - F41.1) as above 01/12/2024 Generalized anxiety disorder (ICD-10 - F41.1) as above 01/12/2024 Mild recurrent major depression (ICD-10 - F33.0) cont abilify 5mg daily cont duloxetine 60mg daily highly recommend therapy Hx alcohol, polysubstance abuse Diff: trauma, personality Context: chronic pain/fatigue; high interpersonal stressors tolerating and improvement. discuss options, decision to keep meds as is for now. Education on meds and tx course. Discuss high social/other stressors-therapy indicated, not receptive. f/u in 2 months, earlier if concerns -discussed transition to new provider as I am leaving the practice after this month 03/14/2024 Generalized anxiety disorder (ICD-10 - F41.1) Assessment and Plan: Anxiety and Depression Reports ongoing anxiety and depression, significant stressors ongoing She admits she does not take her medications routinely, states they don't help, acknowledged she knows she is suppose to take them routinely in order for full benefits, but she likes immediate gratification. Has an I am who I am mentality, she feels she hates doctors, all these medications for her heart, mental health, etc. She doesn't take any of it consistently. We talked about medications and treatment, and how we won't see benefits without routine use. Expressed to her concerns over her mental health and physical health overall. Discussed role of medications, the providers, and her role in taking and adherence, essentially outlining a plan for change or a plan for transitioning to termination care. Expresses acceptance and willingness to try, and trust the process. Plan: - Continue Duloxetine 60 mg qhs, take consistently - Continue Abilify 5 mg qhs, take consistently - continue trazodone 100 mg qhs, was PRN, recommended taking routinely to allow for better sleep, and the additional benefits for mood and anxiety Educated on smoking cessation, cessation encouraged Encouraged to minimize alcohol consumption, educated on risk/benefit, impact on mental health, interaction and risks while taking with medications Encourage seeking support from family, friends, or support groups Consider referral to therapist or counselor for additional support, declines at this time Follow-up in 4-6 weeks, and if taken consistently, reassess progress, medication effectiveness, and address concerns 03/14/2024 Moderately severe recurrent major depression (ICD-10 - F33.2) Assessment and Plan: Anxiety and Depression Reports ongoing anxiety and depression, significant stressors ongoing She admits she does not take her medications routinely, states they don't help, acknowledged she knows she is suppose to take them routinely in order for full benefits, but she likes immediate gratification. Has an I am who I am mentality, she feels she hates doctors, all these medications for her heart, mental health, etc. She doesn't take any of it consistently. We talked about medications and treatment, and how we won't see benefits without routine use. Expressed to her concerns over her mental health and physical health overall. Discussed role of medications, the providers, and her role in taking and adherence, essentially outlining a plan for change or a plan for transitioning to termination care. Expresses acceptance and willingness to try, and trust the process. Plan: - Continue Duloxetine 60 mg qhs, take consistently - Continue Abilify 5 mg qhs, take consistently - continue trazodone 100 mg qhs, was PRN, recommended taking routinely to allow for better sleep, and the additional benefits for mood and anxiety Educated on smoking cessation, cessation encouraged Encouraged to minimize alcohol consumption, educated on risk/benefit, impact on mental health, interaction and risks while taking with medications Encourage seeking support from family, friends, or support groups Consider referral to therapist or counselor for additional support, declines at this time Follow-up in 4-6 weeks, and if taken consistently, reassess progress, medication effectiveness, and address concerns 2024 Generalized anxiety disorder (ICD-10 - F41.1) Depression and Anxiety - Patient reports feeling crappy and increased stress and anxiety - Inconsistent medication adherence Plan: - Encourage consistent use of duloxetine for at least 4 weeks - Recommend considering therapy again Insomnia - Reports inconsistent sleep patterns and difficulty falling asleep Plan: - Encourage use of trazodone as needed for sleep - Recommend consistent sleep schedule and good sleep hygiene Medication Management - Complex regimen with 32 medications - Struggles with adherence Plan: - Simplify regimen, focus on duloxetine and trazodone - Encourage use of pill organizer and phone alarms Social Stressors - Dealing with housing issues, relationship problems, and financial stress Plan: - Encourage seeking support from friends, family, or local resources - Recommend setting boundaries to protect mental health Follow up to assess medication effectiveness and adherence, and to address ongoing social stressors Educated on smoking cessation, cessation encouraged Encouraged to minimize alcohol consumption, educated on risk/benefit, impact on mental health, interaction and risks while taking with medications Follow-up in 4 weeks, and if taken consistently, reassess progress, medication effectiveness, and address concerns 05/22/2024 Generalized anxiety disorder (ICD-10 - F41.1) Depression anf Anxiety - Has been taking medications more consistently - Reports some improvement though still feeling depressed and anxious, situational factors - Experiencing short temper and frustration, lack of motivation Plan: - Continue duloxetine 60 mg daily - Encourage practice of stress management techniques (deep breathing exercises, meditation, engaging in hobbies) - Dose not want to adjustment regimen at this time - Recommend considering therapy again Insomnia - Improvement in sleep quality since taking trazodone and hving better pain control Plan: - Continue trazodone at bedtime - Recommend consistent sleep schedule and good sleep hygiene Social Stressors - Dealing with housing issues, relationship problems, and financial stress Plan: - Encourage seeking support from friends, family, or local resources - Recommend setting boundaries to protect mental health Follow up to assess medication effectiveness and adherence, and to address ongoing social stressors Educated on smoking cessation, cessation encouraged Encouraged to minimize alcohol consumption, educated on risk/benefit, impact on mental health, interaction and risks while taking with medications Follow-up in 4 weeks, sooner if concerns arise 07/05/2024 Moderately severe recurrent major depression (ICD-10 - F33.2) 08/15/2024 Generalized anxiety disorder (ICD-10 - F41.1) 08/15/2024 Nicotine use (ICD-10 - Z72.0) -Quit - Yes [place] Tobacco Quitline Call a Smoking QuitlineThe National Cancer [place]'s Smoking Quitline, (6-194-54X-DANIELLE T)Smokefree.go v, which connects you with your State's Quitline, (7-617-YJUKFDT )[facility]oking Quit[facility], (6-743-GJQBJJK ) 12/14/2023 Moderately severe recurrent major depression (ICD-10 - F33.2) increase abilify to 5mg daily cont duloxetine 60mg daily recommend therapy Dx: MDDR, RIKKI, chronic insomnia Hx alcohol, polysubstance abuse Diff: trauma, personality Context: chronic pain/fatigue; high interpersonal stressors UDS conf results not in chart (was +BZO last visit), will have staff call lab. tolerating abilify, unclear if helpful though decrease in PHQ-9. still very irritable. discuss options, shared decision to increase abilify, review r/b/se. Also recommend smoking cessation and why. pt v/u, not currently interested. declines therapy referral f/u in 1 month, earlier if concerns 08/15/2024 Chronic insomnia (ICD-10 - F51.04) 05/22/2024 Moderately severe recurrent major depression (ICD-10 - F33.2) Depression anf Anxiety - Has been taking medications more consistently - Reports some improvement though still feeling depressed and anxious, situational factors - Experiencing short temper and frustration, lack of motivation Plan: - Continue duloxetine 60 mg daily - Encourage practice of stress management techniques (deep breathing exercises, meditation, engaging in hobbies) - Dose not want to adjustment regimen at this time - Recommend considering therapy again Insomnia - Improvement in sleep quality since taking trazodone and hving better pain control Plan: - Continue trazodone at bedtime - Recommend consistent sleep schedule and good sleep hygiene Social Stressors - Dealing with housing issues, relationship problems, and financial stress Plan: - Encourage seeking support from friends, family, or local resources - Recommend setting boundaries to protect mental health Follow up to assess medication effectiveness and adherence, and to address ongoing social stressors Educated on smoking cessation, cessation encouraged Encouraged to minimize alcohol consumption, educated on risk/benefit, impact on mental health, interaction and risks while taking with medications Follow-up in 4 weeks, sooner if concerns arise 2024 Chronic insomnia (ICD-10 - F51.04) Depression and Anxiety - Patient reports feeling crappy and increased stress and anxiety - Inconsistent medication adherence Plan: - Encourage consistent use of duloxetine for at least 4 weeks - Recommend considering therapy again Insomnia - Reports inconsistent sleep patterns and difficulty falling asleep Plan: - Encourage use of trazodone as needed for sleep - Recommend consistent sleep schedule and good sleep hygiene Medication Management - Complex regimen with 32 medications - Struggles with adherence Plan: - Simplify regimen, focus on duloxetine and trazodone - Encourage use of pill organizer and phone alarms Social Stressors - Dealing with housing issues, relationship problems, and financial stress Plan: - Encourage seeking support from friends, family, or local resources - Recommend setting boundaries to protect mental health Follow up to assess medication effectiveness and adherence, and to address ongoing social stressors Educated on smoking cessation, cessation encouraged Encouraged to minimize alcohol consumption, educated on risk/benefit, impact on mental health, interaction and risks while taking with medications Follow-up in 4 weeks, and if taken consistently, reassess progress, medication effectiveness, and address concerns 2024 Moderately severe recurrent major depression (ICD-10 - F33.2) Depression and Anxiety - Patient reports feeling crappy and increased stress and anxiety - Inconsistent medication adherence Plan: - Encourage consistent use of duloxetine for at least 4 weeks - Recommend considering therapy again Insomnia - Reports inconsistent sleep patterns and difficulty falling asleep Plan: - Encourage use of trazodone as needed for sleep - Recommend consistent sleep schedule and good sleep hygiene Medication Management - Complex regimen with 32 medications - Struggles with adherence Plan: - Simplify regimen, focus on duloxetine and trazodone - Encourage use of pill organizer and phone alarms Social Stressors - Dealing with housing issues, relationship problems, and financial stress Plan: - Encourage seeking support from friends, family, or local resources - Recommend setting boundaries to protect mental health Follow up to assess medication effectiveness and adherence, and to address ongoing social stressors Educated on smoking cessation, cessation encouraged Encouraged to minimize alcohol consumption, educated on risk/benefit, impact on mental health, interaction and risks while taking with medications Follow-up in 4 weeks, and if taken consistently, reassess progress, medication effectiveness, and address concerns 03/14/2024 Chronic insomnia (ICD-10 - F51.04) Assessment and Plan: Anxiety and Depression Reports ongoing anxiety and depression, significant stressors ongoing She admits she does not take her medications routinely, states they don't help, acknowledged she knows she is suppose to take them routinely in order for full benefits, but she likes immediate gratification. Has an I am who I am mentality, she feels she hates doctors, all these medications for her heart, mental health, etc. She doesn't take any of it consistently. We talked about medications and treatment, and how we won't see benefits without routine use. Expressed to her concerns over her mental health and physical health overall. Discussed role of medications, the providers, and her role in taking and adherence, essentially outlining a plan for change or a plan for transitioning to termination care. Expresses acceptance and willingness to try, and trust the process. Plan: - Continue Duloxetine 60 mg qhs, take consistently - Continue Abilify 5 mg qhs, take consistently - continue trazodone 100 mg qhs, was PRN, recommended taking routinely to allow for better sleep, and the additional benefits for mood and anxiety Educated on smoking cessation, cessation encouraged Encouraged to minimize alcohol consumption, educated on risk/benefit, impact on mental health, interaction and risks while taking with medications Encourage seeking support from family, friends, or support groups Consider referral to therapist or counselor for additional support, declines at this time Follow-up in 4-6 weeks, and if taken consistently, reassess progress, medication effectiveness, and address concerns 01/12/2024 Chronic insomnia (ICD-10 - F51.04) cont trazodone 100mg qhs prn practice good sleep hygiene 11/23/2023 Chronic insomnia (ICD-10 - F51.04) cont trazodone 100mg qhs prn-last filled #30 on 11/04/23 practice good sleep hygiene 12/14/2023 Chronic insomnia (ICD-10 - F51.04) cont trazodone 100mg qhs prn practice good sleep hygiene 2024 Current nicotine use (ICD-10 - Z72.0) Depression and Anxiety - Patient reports feeling crappy and increased stress and anxiety - Inconsistent medication adherence Plan: - Encourage consistent use of duloxetine for at least 4 weeks - Recommend considering therapy again Insomnia - Reports inconsistent sleep patterns and difficulty falling asleep Plan: - Encourage use of trazodone as needed for sleep - Recommend consistent sleep schedule and good sleep hygiene Medication Management - Complex regimen with 32 medications - Struggles with adherence Plan: - Simplify regimen, focus on duloxetine and trazodone - Encourage use of pill organizer and phone alarms Social Stressors - Dealing with housing issues, relationship problems, and financial stress Plan: - Encourage seeking support from friends, family, or local resources - Recommend setting boundaries to protect mental health Follow up to assess medication effectiveness and adherence, and to address ongoing social stressors Educated on smoking cessation, cessation encouraged Encouraged to minimize alcohol consumption, educated on risk/benefit, impact on mental health, interaction and risks while taking with medications Follow-up in 4 weeks, and if taken consistently, reassess progress, medication effectiveness, and address concerns 05/22/2024 Chronic insomnia (ICD-10 - F51.04) Depression anf Anxiety - Has been taking medications more consistently - Reports some improvement though still feeling depressed and anxious, situational factors - Experiencing short temper and frustration, lack of motivation Plan: - Continue duloxetine 60 mg daily - Encourage practice of stress management techniques (deep breathing exercises, meditation, engaging in hobbies) - Dose not want to adjustment regimen at this time - Recommend considering therapy again Insomnia - Improvement in sleep quality since taking trazodone and hving better pain control Plan: - Continue trazodone at bedtime - Recommend consistent sleep schedule and good sleep hygiene Social Stressors - Dealing with housing issues, relationship problems, and financial stress Plan: - Encourage seeking support from friends, family, or local resources - Recommend setting boundaries to protect mental health Follow up to assess medication effectiveness and adherence, and to address ongoing social stressors Educated on smoking cessation, cessation encouraged Encouraged to minimize alcohol consumption, educated on risk/benefit, impact on mental health, interaction and risks while taking with medications Follow-up in 4 weeks, sooner if concerns arise 08/15/2024 Major depressive disorder, recurrent, moderate (ICD-10 - F33.1) 08/15/2024 Benign essential HTN (ICD-10 - I10) 05/22/2024 Current nicotine use (ICD-10 - Z72.0) Depression anf Anxiety - Has been taking medications more consistently - Reports some improvement though still feeling depressed and anxious, situational factors - Experiencing short temper and frustration, lack of motivation Plan: - Continue duloxetine 60 mg daily - Encourage practice of stress management techniques (deep breathing exercises, meditation, engaging in hobbies) - Dose not want to adjustment regimen at this time - Recommend considering therapy again Insomnia - Improvement in sleep quality since taking trazodone and hving better pain control Plan: - Continue trazodone at bedtime - Recommend consistent sleep schedule and good sleep hygiene Social Stressors - Dealing with housing issues, relationship problems, and financial stress Plan: - Encourage seeking support from friends, family, or local resources - Recommend setting boundaries to protect mental health Follow up to assess medication effectiveness and adherence, and to address ongoing social stressors Educated on smoking cessation, cessation encouraged Encouraged to minimize alcohol consumption, educated on risk/benefit, impact on mental health, interaction and risks while taking with medications Follow-up in 4 weeks, sooner if concerns arise 08/15/2024 Encounter for screening for depression (ICD-10 - Z13.31) 01/12/2024 Other 08/15/2024 Other Nancy Whatley, female, presents with irritability, impatience, and sleep disturbances. She reports a 40-year smoking history and expresses a desire to quit. Nicotine Use Disorder Assessment: Patient reports a 40-year smoking history, starting at age 8. Her primary care physician has advised her to quit, citing concerns about her lungs, cardiovascular health, and varicose veins. The patient expresses a desire to quit smoking but is concerned about potential weight gain. She has previously attempted to quit using nicotine patches but is unsure of their effectiveness. The patient has also tried vaping as a smoking cessation method in the past. Plan: - Prescribe nicotine patches, starting with 21 mg strength - Explore insurance coverage for Transcranial Magnetic Stimulation (TMS) therapy for smoking cessation - Provide information on smoking cessation resources - Discuss potential use of Wellbutrin (bupropion) for smoking cessation, noting previous adverse reaction Irritability and Impatience Assessment: Patient reports having no patience and getting short with everybody. This behavior is affecting her relationships, as people do not want to be around her. Previous treatment with Abilify did not significantly improve her irritability. Plan: - Consider alternative medication options for mood stabilization and irritability management - Monitor for changes in irritability with smoking cessation efforts Sleep Disturbances Assessment: Patient reports sleep issues affecting her morning, noon, night. She mentions using trazodone medication inconsistently for sleep. Plan: - Encourage consistent use of prescribed trazodone sleep medication - Monitor sleep patterns and adjust treatment as necessary Plan Of Treatment Next Appt Details Provider Name:Dora euceda, 09/12/2024 09:00:00 AM, [address], [address], [place], [address], Insurance Providers Payer Name Payer Address Payer Phone Subscriber Number Group Number Insured Name Patient Relationship to Insured Coverage Start Date Coverage End Date [place] [address] [place] [address] [id number] Nancy Whatley Self - patient is the insured [facility] [address] [place] [phone] [id number] Nancy Whatley Self - patient is the insured [place] [address] [address] [place] [address] [id number] Nancy Whatley Self - patient is the insured Medical (General) History Medical History History ICD Code Past Psychiatric History: Anxiety Disord er,Major Depressive Episode chronic fatigue syndrome restless leg syndrome vitamin B12 deficiency vitamin D deficiency Benign essential HTN I10 Hyperlipidemia E78.5 NSTEMI 2022 COPD (chronic obstructive pulmonary dise ase) (CMS/HCC [facility]) J44.9 Hypothyroid E03.9 Gout M10.9 CAD (coronary artery disease) I25.10 Surgical History Surgery Date(Month/Year) rt leg surgery 1977 tkr left knee 06/2023 left hand 1988 left ulnar nerve release 2021 hien carpal tunnel and ulnar nerve releas e 2021 rt wrist surgery 1999 Hospitalization History Reason Date(Month/Year) left elbow infected 2021
[2024-08-28 15:34] LABS: Basophils Absolute Auto 0.1 K/mm3 (0.0-0.1); Basophils Percent Auto 0.8 % (0.2-1.2); Eosinophils Absolute Auto 0.1 K/mm3 (0-0.3); Eosinophils Percent Auto 1.3 % (0-4.4); Hematocrit 41.4 % (37.0-47.0); Hemoglobin 12.7 g/dL (12.0-15.0); Immature Granulocyte Percent A 2.5 % (0-0.5); Lymphocytes Absolute Auto 2.44 K/mm3 (0.9-3.2); Lymphocytes Percent Auto 30.6 % (18.3-44.2); Mean Corpuscular HGB Conc 30.7 g/dl (32-36); Mean Corpuscular Hemoglobin 28.8 pg (26-34); Mean Corpuscular Volume 93.9 fl (80-100); Mean Platelet Volume 9.3 fl (7.4-10.4); Monocytes Absolute Auto 0.4 K/mm3 (0.1-0.6); Neutrophils Absolute Auto 4.8 K/mm3 (1.3-6.7); Neutrophils Percent Auto 59.8 % (45.5-73.1); Platelet Count Result 175 k/mm3 (150-375); Red Blood Count 4.41 M/mm3 (4.2-5.4); Red Cell Distribution Width 16.4 % (11.5-14.5)
[2024-08-28 15:51] LABS: Alanine Aminotransferase 16 U/L (6-35); Albumin Level 4.2 g/dL (3.5-5.1); Alkaline Phosphatase 123 U/L (38-126); Anion Gap 11 mmol/L (4-12); Aspartate Amino Transferase 26 U/L (14-36); Bilirubin,Total 0.2 mg/dL (0.2-1.3); Blood Urea Nitrogen 16 mg/dL (7-17); Carbon Dioxide 23 mmol/L (22-30); Chloride 108 mmol/L (98-107); Estimated CRCL calculation 74 ml/min; Estimated Glomerular Filt Rate > 60; Glucose 82 mg/dL (65-110); Lipase 92 U/L (23-300); Sodium 142 mmol/L (137-145)
[2024-08-28 16:02] LABS: Troponin I < 0.012 ng/mL (0.000-0.034)
[2024-08-28 16:26] VITALS: BP 118/69; PULSE 102; RESP 16; TEMP 36.9; O2SAT 99
[2024-08-28 16:27] LABS: INR 1.1; Prothrombin Time 13.9 Seconds (11.1-14.7)
[2024-08-28 16:28] LABS: Partial Thromboplastin Time 25.1 Seconds (22.3-36.8)
[2024-08-28 17:20] LABS: D Dimer 0.87 ug/mL (<0.48)
--- NOTE | 2024-08-28 17:32 | ED_ITS ---
HPI - Chest Pain General Chief Complaint: Chest Pain Stated Complaint: Chest pain, shortness of breath Time Seen by Provider: 08/28/24 16:56 Source: patient Mode of arrival: ambulatory Limitations: no limitations History of Present Illness HPI narrative: Patient is a 59-year-old female, with PMH of CAD s/p stent 2 years ago, COPD still smoking, CHF, who presents the ED with report of chest pain and shortness of breath. Patient reports she was riding her lawnmower around 1:00 p.m. today when she began to have midsternal chest tightness/pressure. States it has been intermittent throughout the day. Began feeling short of breath with the pain. She went to [facility], but stated the wait was too long and she came here. Denies current pain. Has history of a stent 2 years ago, sees Dr. Lu with [facility], has an appt this month. States pain today does not feel similar to previous stent. Does report recent bronchitis and states she had been on antibiotics and steroids for this. Denies fevers. Denies pain or swelling in legs. Patient does also mention she fell earlier today and rolled her left foot. Complains of pain to her left 4th toe and dorsal foot. Related Data Home Medications ?Medication ?Instructions ?Recorded ?Confirmed ?Last Taken ?Type ropinirole 4 mg tablet 4 mg PO HS 05/22/21 04/21/23 10/22/22 21:00 History gabapentin 300 mg capsule 300 mg PO DAILY 07/09/21 04/21/23 10/23/22 09:00 History clopidogrel 75 mg tablet (Plavix) 75 mg PO DAILY 06/19/22 04/21/23 10/23/22 09:00 History folic acid 1 mg tablet 1 mg PO DAILY 06/19/22 04/21/23 10/23/22 09:00 History mecobalamin (vitamin B12) 1,000 1,000 mcg PO DAILY 06/19/22 04/21/23 10/22/22 09:00 History mcg lozenges metoprolol tartrate 50 mg tablet 50 mg PO BID 06/19/22 04/21/23 10/23/22 09:00 History (Lopressor) nitroglycerin 0.4 mg sublingual 0.4 mg sublingual PRN 06/19/22 04/21/23 10/23/22 14:00 History tablet (Nitrostat) bumetanide 1 mg tablet 1 mg PO BID 04/21/23 04/21/23 Unknown History docusate sodium 100 mg capsule 100 mg PO BID 04/21/23 04/21/23 Unknown History duloxetine 60 mg capsule,delayed 60 mg PO DAILY 04/21/23 04/21/23 Unknown History release empagliflozin 10 mg tablet 10 mg PO DAILY 04/21/23 04/21/23 Unknown History lactulose 10 gram/15 mL oral 10 g PO BID 04/21/23 04/21/23 Unknown History solution levothyroxine 50 mcg tablet 75 mcg PO DAILY 04/21/23 04/21/23 Unknown History pantoprazole 20 mg tablet,delayed 40 mg PO QAM 04/21/23 04/21/23 Unknown History release potassium chloride 20 mEq 40 meq PO QID 04/21/23 04/21/23 Unknown History tablet,extended release spironolactone 25 mg tablet 25 mg PO BID 04/21/23 04/21/23 Unknown History trazodone 100 mg tablet 100 mg PO QHS PRN 04/21/23 04/21/23 Unknown History Allergies Allergy/AdvReac Type Severity Reaction Status Date / Time No Known Allergies Allergy Verified 08/28/24 15:06 Review of Systems 2 Review of Systems: All systems reviewed & are unremarkable except as noted in HPI. All systems reviewed & are unremarkable except as noted in HPI and below PMFSH Past Medical History Medical History Coronary artery disease Inflammatory arthritis Multiple abrasions Depression Anxiety Hypothyroidism DRU (obstructive sleep apnea) COPD (chronic obstructive pulmonary disease) Seizure Surgical History Surgical History S/P cardiac cath May 2022 s/p stent x1 History of Social History Social History Smoking packs per day: 0.5 Smoking cigarettes per day: 10.0 Years smoked: 40 Smoking pack-years: 20.00 Smoking status: Current every day smoker Tobacco type: cigarettes Alcohol intake: current Drinks per week: 3 Alcohol use details: FIRE[employer]ALL [employer]OT[employer] Substance use: never Substance use type: does not use Lack of Transportation: No Lack of Food: Never True Current Housing: I Have Housing Concerned About Future Housing: No Difficulty Paying Gas/Electric Bills: No Difficulty Paying for Meds: No Currently Unemployed: No Education: High School Diploma/GED Difficulty w/ Childcare or Family Care: No Living arrangements: alone Additional living arrangements comments: WITH VARIOUS FAMILY MEMBERS Spiritual care concerns: No Exam 2 Narrative: GENERAL: Appears older than stated age, non-toxic, in no acute distress. HEAD: Normocephalic, atraumatic. RESPIRATORY: Airway patent, respirations nonlabored. Mostly clear, scattered faint expiratory wheezing bilaterally. CARDIOVASCULAR: Borderline tachycardic with regular rhythm without murmurs, rubs, or gallops. Peripheral pulses intact. MUSCULOSKELETAL: Moves all extremities. No gross deformities. No peripheral edema. No calf tenderness. Mild bruising and tenderness to left 4th toe. Mild tenderness along R anterior ankle mortise into dorsal foot. Chronic subcutaneous deformity to R lott. SKIN: Warm, dry, normal color. NEURO: A&O X3. Speech clear. No ataxic movements. PSYCHIATRIC: Appropriate mood and affect. Normal interaction. Course Vital Signs Vital signs: Vital Signs Temperature 97.6 F 08/28/24 15:17 Pulse Rate 105 H 08/28/24 15:17 Respiratory Rate 19 08/28/24 15:17 Blood Pressure 137/90 08/28/24 15:17 Pulse Oximetry 100 08/28/24 15:17 Oxygen Delivery Room Air 08/28/24 15:17 Temperature 98.4 F 08/28/24 16:26 Pulse Rate 91 08/28/24 20:50 Respiratory Rate 16 08/28/24 20:50 Blood Pressure 121/74 08/28/24 20:50 Pulse Oximetry 99 08/28/24 20:50 Oxygen Delivery Room Air 08/28/24 15:17 MDM - Chest Pain MDM Narrative Medical decision making narrative: Patient presented to ED with chest pain and shortness of breath began this afternoon. Intermittent throughout the day. History of CAD status post stent 2 years ago. EKG with sinus tach, rate 103, nonspecific ST changes. No acute ST elevation or depression. Baseline troponin is undetectable. D-dimer did result elevated at 0.87. Chest x-ray is clear. CTA of chest PE study was obtained and no evidence of PE. Does show bronchitis changes which patient is aware of as well as incidental pulmonary nodules. Patient follows with her primary care doctor for this and recently had her yearly scan for her nodules. 3hr trop negative HEART score =4 Patient continues to remain chest pain free. 1950 - Discussed case with Dr. Ortiz, cardiology @ [facility] - on-call for patient's donations attendant Dr. Lu, was able to look through patient's chart, hx of Takotsubo cardiomyopathy, PCI in 2022 was to RCA. Had stress test in December 2023 which was normal. Given patient's reassuring workup here as well as recent normal stress test, felt comfortable with close outpatient follow-up. Will speak to Dr. Lu to set up f/u appointment soon with patient. I agree w/ this plan. Discussed these recommendations with patient. She is in agreement. Advised to monitor symptoms closely, contact Cardiology office if she does not hear from them within the next couple of days. Given strict return precautions. She is in agreement with plan. Remains asymptomatic. Patient did report fall with left foot injury today. X-ray of left foot shows nondisplaced navicular fracture. Discussed this with patient. She was placed in a short-leg posterior splint. Given crutches. Advised to follow-up with orthopedics for this. Advised to be nonweightbearing until seen by orthopedics. Pain medications sent to pharmacy. Discussed rice therapy. Otherwise neurovascularly intact. Medical Records Data Attestation: I reviewed the patient's medical records. Lab Data Attestation: I reviewed the patient's lab results. 08/28/24 15:23 08/28/24 15:23 Labs: Lab Results 08/28/24 08/28/24 Range/Units 15:23 18:17 WBC 8.0 (4.5-10.0) K/mm3 RBC 4.41 (4.2-5.4) M/mm3 Hgb 12.7 (12.0-15.0) g/dL Hct 41.4 (37.0-47.0) % MCV 93.9 (80-100) fl MCH 28.8 (26-34) pg MCHC 30.7 L (32-36) g/dl RDW 16.4 H (11.5-14.5) % Plt Count 175 (150-375) k/mm3 MPV 9.3 (7.4-10.4) fl Immature Gran % (Auto) 2.5 H (0-0.5) % Neut % (Auto) 59.8 (45.5-73.1) % Lymph % (Auto) 30.6 (18.3-44.2) % [place] % (Auto) 5.0 (2.6-8.5) % Eos % (Auto) 1.3 (0-4.4) % Baso % (Auto) 0.8 (0.2-1.2) % Lymph # (Auto) 2.44 (0.9-3.2) K/mm3 [place] # (Auto) 0.4 (0.1-0.6) K/mm3 Eos # (Auto) 0.1 (0-0.3) K/mm3 Baso # (Auto) 0.1 (0.0-0.1) K/mm3 Abs Immat Gran (auto) 0.20 H (0.00-0.031) K/mm3 Absolute Neuts (auto) 4.8 (1.3-6.7) K/mm3 Absolute Nucleated RBC 0.000 (0.0-0.012) K/mm3 Nucleated RBC % 0.0 (0.0-0.2) % PT 13.9 (11.1-14.7) Seconds INR 1.1 APTT 25.1 (22.3-36.8) Seconds D-Dimer 0.87 H (<0.48) ug/mL Sodium 142 (137-145) mmol/L Potassium 4.0 (3.4-5.0) mmol/L Chloride 108 H (98-107) mmol/L Carbon Dioxide 23 (22-30) mmol/L Anion Gap 11 (4-12) mmol/L BUN 16 (7-17) mg/dL Creatinine 0.70 (0.7-1.0) mg/dL Estim Creat Clear Calc 74 ml/min Estimated GFR > 60 (59 - ) Glucose 82 (65-110) mg/dL Calcium 9.0 (8.4-10.2) mg/dL Total Bilirubin 0.2 (0.2-1.3) mg/dL AST 26 (14-36) U/L ALT 16 (6-35) U/L Alkaline Phosphatase 123 (38-126) U/L Troponin I < 0.012 < 0.012 (0.000-0.034) ng/mL NT-Pro-B Natriuret Pep 245 H (19.9-100) pg/mL Total Protein 7.0 (6.3-8.2) g/dL Albumin 4.2 (3.5-5.1) g/dL Lipase 92 (23-300) U/L Imaging Data Attestation: I personally reviewed and interpreted this imaging study as follows: Radiologist's impression: ITS Impressions Chest X-Ray 08/28/24 15:38 IMPRESSION: No acute cardiopulmonary process. Foot X-Ray 08/28/24 15:42 IMPRESSION: Transverse, nondisplaced navicular fracture. Chest CTA 08/28/24 18:47 IMPRESSION: No CT evidence of acute pulmonary embolus. Minimal right lower lobe airway debris/secretions. Mild bronchial wall thickening as can be seen with bronchitis. 5 mm right upper lobe pulmonary nodule which demonstrates slight interval growth, recommend low-dose noncontrast CT follow-up of the chest in 6 months. Multiple additional sub-6 mm pulmonary nodules are noted that are unchanged. ECG Data EKG #1: Attestation: I personally reviewed and interpreted this ECG as follows: ECG completion date: 08/28/24 ECG completion time: 15:14 EKG Interpretation: tachycardia (103), sinus rhythm, non-specific ST changes and other (some artifact) Discharge Plan Discharge Clinical Impression: Atypical chest pain, Incidental pulmonary nodule, Closed navicular fracture of left foot Patient Disposition: Home Condition: Stable Instructions: Antibiotic Form, Angina (ED), Chest Pain (ED), Foot Fracture in Adults (ED), Splint Care (ED) Additional Instructions: Your workup here was reassuring. Your donations attendant should be contacting you to make follow-up appointment for further evaluation. Contact cardiology office in next few days if you do not hear from them. Continue to monitor symptoms. Return to ED for worsening or severe chest pain, worsening difficulty breathing, pain or swelling in your legs, coughing blood, unable to keep down food or drink, persistent fevers, or any other symptoms of concern. Your CT imaging did show several pulmonary nodules which will require further imaging as an outpatient. Continue to follow-up with your primary care doctor for this. Your x-ray of your left foot showed a fracture of the navicular bone. You will need to follow-up with orthopedics for this. Contact office tomorrow to make appointment for further evaluation. Wear splint until seen by orthopedics. Avoid weight-bearing until seen by orthopedics. Use crutches for assistance with walking. Recommend Tylenol as needed for pain. [place] as needed for more severe pain. Patient Language: Hebrew Prescriptions: New hydrocodone-acetaminophen 5-325 mg tablet 1 tablet PO Q6H PRN (Reason: pain) Qty: 15 0RF No Action mecobalamin (vitamin B12) 1,000 mcg lozenge 1,000 mcg PO DAILY Rx Instructions: allow to dissolve in mouth OR may chew lightly before swallowing folic acid 1 mg tablet 1 mg PO DAILY metoprolol tartrate [Lopressor] 50 mg tablet 50 mg PO BID nitroglycerin [Nitrostat] 0.4 mg tablet, sublingual 0.4 mg sublingual PRN clopidogrel [Plavix] 75 mg tablet 75 mg PO DAILY albuterol sulfate 2.5 mg /3 mL (0.083 %) solution for nebulization 2.5 mg inhalation Q6H PRN (Reason: shortness of breath or wheezing) Qty: 360 1RF bumetanide 1 mg tablet 1 mg PO BID docusate sodium 100 mg capsule 100 mg PO BID duloxetine 60 mg capsule,delayed release(DR/EC) 60 mg PO DAILY empagliflozin 10 mg tablet 10 mg PO DAILY lactulose 10 gram/15 mL solution 10 g PO BID levothyroxine 50 mcg tablet 75 mcg PO DAILY pantoprazole 20 mg tablet,delayed release (DR/EC) 40 mg PO QAM potassium chloride 20 mEq tablet extended release 40 meq PO QID spironolactone 25 mg tablet 25 mg PO BID trazodone 100 mg tablet 100 mg PO QHS PRN ropinirole 4 mg tablet 4 mg PO HS gabapentin 300 mg capsule 300 mg PO DAILY colchicine 0.6 mg tablet 0.6 mg PO DAILY Qty: 3 3RF allopurinol 300 mg tablet 300 mg PO DAILY Qty: 90 1RF albuterol sulfate 90 mcg/actuation HFA aerosol inhaler 1 - 2 inh INHALATION Q4-6H PRN (Reason: shortness of breath or wheezing) Qty: 8.5 2RF Trelegy Ellipta 100-62.5-25 mcg blister with device See Rx Instructions .ROUTE .COMPLEX Qty: 60 5RF Dose Instruction: TAKE 1 PUFF BY MOUTH EVERY 24 HOURS. RINSE AND SPIT Rx Instructions: TAKE 1 PUFF BY MOUTH EVERY 24 HOURS. RINSE AND SPIT Follow-up/Referrals: PHYSICIAN NOT ON STAFF,NONSTAFF [Primary Care Provider] - Baljit Dong MD [Physician] - (ORTHOPEDICS) Time of Disposition: 20:39 Quality HEART score for chest pain patients History: moderately suspicious ECG: normal Age: > 45 and < 65 years Risk factors: > or = to 3 risk factors of atherosclerotic disease Troponin: < or = to 1x normal limit Heart score: 4
--- OUTSIDE RECORDS SUMMARY | 2024-08-28 17:39 | XMS_ITS | Clinical Summary ---
Author Organization [facility] Address [address], [facility] [address] [place] [address] Phone Care Team Providers Care Circular Sawyer Helper Name Role Phone Juana James APRN, [employer]OUND [employer]IE[employer] Primary Care P [facility] Medications polyethylene glycol (MIRALAX) Powder Please [...] to complete this topic Insurance , [address] [place] [address] MEDICAID [place] , [address] [place] [address] Care Teams Circular Sawyer Helper Relationship Specialty Start Date End Date Juana James APRN, [employer]OUND [employer]IEF [address] [place] [address] [place] [address] PCP - General Advanced Practice Nurse 09/07/17
--- NOTE | 2024-08-28 18:13 | ECG_ITS ---
Test Date: 2024-08-28 18:44:21 Measurements Intervals [place] Rate: 96 P: 53 DE: 160 QRS: 24 QRSD: 62 T: 27 QT: 333 QTc: 421 Interpretive Statements SINUS RHYTHM POSSIBLE LEFT ATRIAL ENLARGEMENT MINIMAL Q WAVES- INFERIOR LEADS BASELINE ARTIFACT- I, II, III, AVR, AVL, AVF, V1-V2, V4-V6 BORDERLINE ECG Compared to ECG 08/28/2024 15:14:31 HEART RATE HAS DECREASED Electronically Signed On 08-28-2024 20:46:25 CDT by Zac Kendrick D.O.
[2024-08-28] MEDS: ASPIRIN 81 MG CHEWABLE TABLET 324 MG PO (18:20)
[2024-08-28] MEDS: SODIUM CHLORIDE 0.9% IV 1,000 ML 999 ML IV CONT (18:20)
[2024-08-28 18:58] LABS: NT Pro B Type Natriuretic Pept 245 pg/mL (19.9-100)
[2024-08-28 19:02] LABS: Troponin I < 0.012 ng/mL (0.000-0.034)
[2024-08-28 19:50] VITALS: BP 114/71; PULSE 94; RESP 16; O2SAT 99
[2024-08-28 20:50] VITALS: BP 121/74; PULSE 91; RESP 16; O2SAT 99
== END 2024-08-28 20:57 | disposition home or self-care (01) ==
PROVIDERS: Emergency Medicine; Emergency Provider Physician Assistant
DX: S92.252A Displaced fracture of navicular [scaphoid] of left foot, initial encounter for closed fracture (principal); R07.89 Other chest pain; R91.1 Solitary pulmonary nodule; R00.0 Tachycardia, unspecified; F17.210 Nicotine dependence, cigarettes, uncomplicated; I25.10 Atherosclerotic heart disease of native coronary artery without angina pectoris; F41.9 Anxiety disorder, unspecified; F32.A Depression, unspecified; E03.9 Hypothyroidism, unspecified; G47.30 Sleep apnea, unspecified; J44.9 Chronic obstructive pulmonary disease, unspecified; W19.XXXA Unspecified fall, initial encounter; R06.02 Shortness of breath
CPT/HCPCS: 29515; 36415; 71046; 71275; 73630; 80053; 83690; 83880; 84484; 85025; 85380; 85610; 85730; 93005; 96360; 99284; A9270; J7030; Q9967